=== PATIENT | female | born 1940 | race Caucasian/White ===

== ENCOUNTER 2018-03-05 13:09 | Emergency (ER) | payer MEDICARE, OTHER ==
[2018-03-05 13:14] VITALS: BP 157/73; PULSE 80; TEMP 98.8
--- NOTE | 2018-03-05 13:35 | ED ---
General Adult HPI - General Chief complaint: Shortness of Breath Stated complaint: chest pain Source: patient Mode of arrival: wheelchair Limitations: no limitations - History of Present Illness Initial comments: Dictation was produced using [employer] dictation software. please excuse any grammatical, word or spelling errors. Chief Complaint: 77-year-old female with past medical history diabetes , GERD, dyslipidemia, hypertension presents with left shoulder pain. History of Present Illness: This 77-year-old female presents with left upper extremity pain. Patient states that yesterday they were carrying a lot of groceries. Patient is not used to exert herself that much. She was concerned that she was having a heart attack propping her to come to the emergency department. Patient does not have a history of coronary artery disease. Patient denies any chest pressure. She does report feeling mildly short of breath however she feels that she was anxious. The ROS documented in this emergency department record has been reviewed and confirmed by me. Those systems with pertinent positive or negative responses have been documented in the HPI. All other systems are other negative and/or noncontributory. - Related Data Home Medications Medication Instructions Recorded Confirmed Aspirin [Adult Low Dose Aspirin EC] 81 mg PO DAILY 03/05/18 03/05/18 Omeprazole 40 mg PO DAILY 03/05/18 03/05/18 Quinapril HCl 40 mg PO HS 03/05/18 03/05/18 Simvastatin [Zocor] 20 mg PO HS 03/05/18 03/05/18 glyBURIDE [Diabeta] 5 mg PO DAILY 03/05/18 03/05/18 traMADol HCL [Ultram] 50 mg PO DAILY PRN 03/05/18 03/05/18 Allergies Allergy/AdvReac Type Severity Reaction Status Date / Time No Known Allergies Allergy Verified 03/05/18 14:11 Review of Systems ROS Statement: Those systems with pertinent positive or pertinent negative responses have been documented in the HPI. ROS Other: All systems not noted in ROS Statement are negative. Past Medical History Past Medical History: Diabetes Mellitus, GERD/Reflux, Hyperlipidemia, Hypertension History of Any Multi-Drug Resistant Organisms: None Reported Past Surgical History: Hysterectomy Additional Past Surgical History / Comment(s): veins strip Past Psychological History: No Psychological Hx Reported Smoking Status: Never smoker Past Alcohol Use History: None Reported Past Drug Use History: None Reported General Exam - General Exam Comments Initial Comments: PHYSICAL EXAM: General Impression: Alert and oriented x3, not in acute distress HEENT: Normocephalic atraumatic, extra-ocular movements intact, pupils equal and reactive to light bilaterally, mucous membranes moist. Cardiovascular: Heart regular rate and rhythm, S1&S2 audible, no murmurs, rubs or gallops Chest: Lungs clear to auscultation bilaterally, no rhonchi, no wheeze, no rales Abdomen: Bowel sounds present, abdomen soft, non-tender, non-distended, no organomegaly Musculoskeletal: Pulses present and equal in all extremities, no peripheral edema, tenderness to palpation of the left shoulder, pain reproduced with abduction of the left upper extremity Motor: Power 5/5 bilaterally, no focal deficits noted Neurological: CN II-XII grossly intact, no focal motor or sensory deficits noted Skin: Intact with no visualized rashes Psych: Normal affect and mood Limitations: no limitations Course Vital Signs 03/05/18 13:10 Temperature 98.8 F Pulse Rate 80 Respiratory 18 Rate Blood Pressure 157/73 O2 Sat by Pulse 97 Oximetry Medical Decision Making - Medical Decision Making ED course: 77-year-old female presents with left upper extremity pain. Clinical presentation consistent with ACS. Vital signs upon arrival are within acceptable limits. Physical examination shows well-appearing female in no acute distress. Pain is reproduced on physical examination. Patient's symptoms are atypical for any cardiopulmonary disease however given patient's age and comorbidities she has risk factors. Laboratory evaluation obtained. CBC unremarkable coag panel unremarkable. Metabolic panel is unremarkable. Cardiac enzymes are negative. Two-view chest x-ray shows no acute processes. Discussed with patient that is her recommendation to obtain serial troponins to confidently rule out acute coronary disease. States she feels fine and that she would rather leave then wait for the second troponin. I believe this is reasonable given that patient's clinical presentation is obviously musculoskeletal shoulder strain. Patient lives locally and states that she will be able to come to the emergency Department immediately should she develop any symptoms. Patient is understandable and agreeable to disposition. EKG interpretation: Ventricular rate 76. Normal sinus rhythm. No GA prolongation, no QTC prolongation, no ST or T-wave changes noted. Overall, this EKG is unremarkable - Lab Data Result diagrams: 03/05/18 13:35 03/05/18 13:35 Lab Results 0703/05/18 03/05/18 Range/Units 13:35 13:35 13:35 WBC 5.9 (3.8-10.6) k/uL RBC 4.22 (3.80-5.40) m/uL Hgb 11.5 (11.4-16.0) gm/dL Hct 36.8 (34.0-46.0) % MCV 87.2 (80.0-100.0) fL MCH 27.3 (25.0-35.0) pg MCHC 31.4 (31.0-37.0) g/dL RDW 15.5 (11.5-15.5) % Plt Count 315 (150-450) k/uL Neutrophils % 70 % Lymphocytes % 16 % Monocytes % 10 % Eosinophils % 2 % Basophils % 1 % Neutrophils # 4.2 (1.3-7.7) k/uL Lymphocytes # 0.9 L (1.0-4.8) k/uL Monocytes # 0.6 (0-1.0) k/uL Eosinophils # 0.1 (0-0.7) k/uL Basophils # 0.0 (0-0.2) k/uL Hypochromasia Slight PT (9.0-12.0) sec INR (<1.2) APTT (22.0-30.0) sec Sodium 140 (137-145) mmol/L Potassium 4.6 (3.5-5.1) mmol/L Chloride 104 (98-107) mmol/L Carbon Dioxide 26 (22-30) mmol/L Anion Gap 10 mmol/L BUN 13 (7-17) mg/dL Creatinine 0.75 (0.52-1.04) mg/dL Est GFR (CKD-EPI)AfAm 88 (>60 ml/min/1.73 sqM) Est GFR (CKD-EPI)NonAf 76 (>60 ml/min/1.73 sqM) Glucose 132 H (74-99) mg/dL Calcium 9.2 (8.4-10.2) mg/dL Magnesium 2.1 (1.6-2.3) mg/dL Total Bilirubin 0.3 (0.2-1.3) mg/dL AST 16 (14-36) U/L ALT 19 (9-52) U/L Alkaline Phosphatase 67 (38-126) U/L Total Creatine Kinase 76 (30-135) U/L CK-MB (CK-2) 1.3 (0.0-2.4) ng/mL CK-MB (CK-2) Rel Index 1.7 Troponin I <0.012 (0.000-0.034) ng/mL Total Protein 7.0 (6.3-8.2) g/dL Albumin 4.1 (3.5-5.0) g/dL 03/05/18 Range/Units 13:35 WBC (3.8-10.6) k/uL RBC (3.80-5.40) m/uL Hgb (11.4-16.0) gm/dL Hct (34.0-46.0) % MCV (80.0-100.0) fL MCH (25.0-35.0) pg MCHC (31.0-37.0) g/dL RDW (11.5-15.5) % Plt Count (150-450) k/uL Neutrophils % % Lymphocytes % % Monocytes % % Eosinophils % % Basophils % % Neutrophils # (1.3-7.7) k/uL Lymphocytes # (1.0-4.8) k/uL Monocytes # (0-1.0) k/uL Eosinophils # (0-0.7) k/uL Basophils # (0-0.2) k/uL Hypochromasia PT 9.7 (9.0-12.0) sec INR 1.0 (<1.2) APTT 24.0 (22.0-30.0) sec Sodium (137-145) mmol/L Potassium (3.5-5.1) mmol/L Chloride (98-107) mmol/L Carbon Dioxide (22-30) mmol/L Anion Gap mmol/L BUN (7-17) mg/dL Creatinine (0.52-1.04) mg/dL Est GFR (CKD-EPI)AfAm (>60 ml/min/1.73 sqM) Est GFR (CKD-EPI)NonAf (>60 ml/min/1.73 sqM) Glucose (74-99) mg/dL Calcium (8.4-10.2) mg/dL Magnesium (1.6-2.3) mg/dL Total Bilirubin (0.2-1.3) mg/dL AST (14-36) U/L ALT (9-52) U/L Alkaline Phosphatase (38-126) U/L Total Creatine Kinase (30-135) U/L CK-MB (CK-2) (0.0-2.4) ng/mL CK-MB (CK-2) Rel Index Troponin I (0.000-0.034) ng/mL Total Protein (6.3-8.2) g/dL Albumin (3.5-5.0) g/dL Disposition Clinical Impression: Shoulder strain Disposition: HOME SELF-CARE Condition: Good Instructions: Muscle Strain (ED) Is patient prescribed a controlled substance at d/c from ED?: No Referrals: None,Stated [Primary Care Provider] - 1-2 days Time of Disposition: 14:49
--- NOTE | 2018-03-05 13:51 | XR ---
EXAMINATION TYPE: XR chest 2V DATE OF EXAM: 03/05/2018 HISTORY: difficulty breathing. REFERENCE: NONE. FINDINGS: There is a partial eventration of the right hemidiaphragm. The lungs are clear. Pleural spa ce are clear. The heart is not enlarged. IMPRESSION: NO ACUTE CARDIOTHORACIC ABNORMALITY.
[2018-03-05 14:04] LABS: Albumin 4.1 g/dL (3.5-5.0); Calcium 9.2 mg/dL (8.4-10.2); Magnesium 2.1 mg/dL (1.6-2.3); Potassium 4.6 mmol/L (3.5-5.1); Total Bilirubin 0.3 mg/dL (0.2-1.3)
[2018-03-05 14:05] LABS: Basophils % (A) 1 %; Eosinophils # (A) 0.1 k/uL (0-0.7); Eosinophils % (A) 2 %; HCT 36.8 % (34.0-46.0); HGB 11.5 gm/dL (11.4-16.0); Hypochromasia Slight; Lymphocytes # (A) 0.9 k/uL (1.0-4.8); Lymphocytes % (A) 16 %; MCH 27.3 pg (25.0-35.0); MCHC 31.4 g/dL (31.0-37.0); MCV 87.2 fL (80.0-100.0); Mean Platelet Volume 6.4; Monocytes # (A) 0.6 k/uL (0-1.0); Monocytes % (A) 10 %; Neutrophils # (A) 4.2 k/uL (1.3-7.7); Neutrophils % (A) 70 %; Platelet Count 315 k/uL (150-450); Prothrombin Time 9.7 sec (9.0-12.0); RBC 4.22 m/uL (3.80-5.40); RDW 15.5 % (11.5-15.5); WBC 5.9 k/uL (3.8-10.6)
[2018-03-05 14:20] LABS: Creatine Kinase 76 U/L (30-135)
[2018-03-05 14:31] LABS: Creatine Kinase MB 1.3 ng/mL (0.0-2.4); Troponin I <0.012 ng/mL (0.000-0.034)
[2018-03-05 15:20] VITALS: RESP 16
== END 2018-03-05 15:17 | disposition home or self-care (01) ==
LOC: EC 13:09
DX: S46.912A Strain of unspecified muscle, fascia and tendon at shoulder and upper arm level, left arm, initial encounter (principal); E11.9 Type 2 diabetes mellitus without complications; K21.9 Gastro-esophageal reflux disease without esophagitis; E78.5 Hyperlipidemia, unspecified; I10 Essential (primary) hypertension; Z79.82 Long term (current) use of aspirin; Z79.84 Long term (current) use of oral hypoglycemic drugs; Z79.899 Other long term (current) drug therapy; X50.0XXA Overexertion from strenuous movement or load, initial encounter
CPT/HCPCS: 36415; 71046; 80053; 82550; 82553; 83735; 84484; 85025; 85610; 85730; 93005; 99285

== ENCOUNTER 2018-04-12 14:33 | Emergency (ER) | payer MEDICARE, OTHER ==
[2018-04-12 14:41] VITALS: BP 115/75; PULSE 92; RESP 18; TEMP 98.1
[2018-04-12] MEDS ORDERED: IBUPROFEN 600 MG TAB PO STA (14:52)
--- NOTE | 2018-04-12 15:18 | ED ---
Back Pain HPI - General Source: patient, RN notes reviewed Limitations: no limitations <Carrie Boogie - Last Filed: 04/12/18 16:59> <Rafita Escalante - Last Filed: 04/12/18 17:11> - General Chief Complaint: Back Pain/Injury Stated Complaint: back & leg pain Time Seen by Provider: 04/12/18 14:42 - History of Present Illness Initial Comments: This is a 78-year-old female of hypertension, hyperlipidemia and diabetes who presents today for chief complain of low back pain x5-6 days. Patient states that she noticed increasing low back pain for the past 5-6 days, she has recently returned from [place] and has been walking more than usual which she thinks this contributed to the pain. Patient describes the pain as a 9 out of 10 continuous aching pain that increases with walking and radiates down the right leg occasionally. Patient denies any fall or trauma to that, previous back surgery, history of cancer, fever, chills, night sweats, IV drug use, rashes, urgency, frequency, just area or hematuria, flank pain, numbness, tingling, paresthesias or loss of sensation lower extremities, lower extremity muscle weakness, ataxia. Patient has tried taking tramadol for which appears to prescribed from her physician in [place] for the pain. Her last dose at 9 PM last night she states that this barely helped. Patient has been applying Aspercreme to her lower back. She states that this does not help. Patient presents today to see if there is something we can do about the pain. Remainder of ROS negative. Upon arrival patient's vital signs stable, blood pressure 115/75, afebrile. (Carrie Boogie) - Related Data Home Medications Medication Instructions Recorded Confirmed Aspirin [Adult Low Dose Aspirin EC] 81 mg PO DAILY 03/05/18 03/05/18 Omeprazole 40 mg PO DAILY 03/05/18 03/05/18 Quinapril HCl 40 mg PO HS 03/05/18 03/05/18 Simvastatin [Zocor] 20 mg PO HS 03/05/18 03/05/18 glyBURIDE [Diabeta] 5 mg PO DAILY 03/05/18 03/05/18 traMADol HCL [Ultram] 50 mg PO DAILY PRN 03/05/18 03/05/18 Previous Rx's Medication Instructions Recorded Ibuprofen [Motrin] 600 mg PO Q8HR PRN 7 Days #21 tab 04/12/18 Allergies Allergy/AdvReac Type Severity Reaction Status Date / Time No Known Allergies Allergy Verified 04/12/18 14:41 Review of Systems ROS Other: All systems not noted in ROS Statement are negative. Constitutional: Denies: fever, chills, weakness, night sweats Eyes: Denies: vision change ENT: Denies: hearing loss Respiratory: Denies: cough, dyspnea, wheezes, hemoptysis, stridor Cardiovascular: Denies: chest pain, palpitations, edema, syncope Gastrointestinal: Denies: abdominal pain, nausea, vomiting, diarrhea, constipation Genitourinary: Denies: urgency, dysuria, frequency, hematuria Musculoskeletal: Reports: back pain, myalgia (right sided low back pain). Denies: joint swelling, arthralgia Skin: Denies: rash, lesions Neurological: Denies: headache, weakness, numbness, paresthesias, confusion, abnormal gait, vertigo <Carrie Boogie - Last Filed: 04/12/18 16:59> ROS Other: All systems not noted in ROS Statement are negative. <Rafita Escalante - Last Filed: 04/12/18 17:11> ROS Statement: Those systems with pertinent positive or pertinent negative responses have been documented in the HPI. Past Medical History Past Medical History: Diabetes Mellitus, GERD/Reflux, Hyperlipidemia, Hypertension History of Any Multi-Drug Resistant Organisms: None Reported Past Surgical History: Hysterectomy Additional Past Surgical History / Comment(s): veins strip Past Psychological History: No Psychological Hx Reported Smoking Status: Never smoker Past Alcohol Use History: None Reported Past Drug Use History: None Reported <Carrie Boogie - Last Filed: 04/12/18 16:59> General Exam Limitations: no limitations General appearance: alert, in no apparent distress Head exam: Present: atraumatic, normocephalic, normal inspection Eye exam: Present: normal appearance, PERRL, EOMI. Absent: nystagmus Pupils: Present: normal accommodation ENT exam: Present: mucous membranes moist Neck exam: Present: normal inspection, full ROM. Absent: tenderness Respiratory exam: Present: normal lung sounds bilaterally. Absent: wheezes, rales, rhonchi, stridor Cardiovascular Exam: Present: regular rate, normal rhythm, normal heart sounds. Absent: rubs, gallop, clicks, JVD, S3, S4 Left Hip exam: Present: normal inspection, full ROM Upper Leg exam: Present: normal inspection, full ROM Knee exam: Present: normal inspection, full ROM Lower Leg exam: Present: normal inspection, full ROM Ankle exam: Present: normal inspection, full ROM Foot/Toe exam: Present: normal inspection, full ROM Neurovascular tendon exam: Present: no vascular compromise. Absent: motor deficit, sensory deficit Gait: observed and normal Right Hip exam: Present: normal inspection, full ROM. Absent: tenderness Upper Leg exam: Present: normal inspection, full ROM. Absent: tenderness Knee exam: Present: normal inspection, full ROM. Absent: tenderness Lower Leg exam: Present: normal inspection, full ROM. Absent: tenderness Ankle exam: Present: normal inspection, full ROM. Absent: tenderness Foot/Toe exam: Present: normal inspection, full ROM. Absent: tenderness Neurovascular tendon exam: Present: no vascular compromise. Absent: motor deficit, sensory deficit, extremity cold to touch, pallor, foot drop Gait: observed and normal Back exam: Present: normal inspection, full ROM, tenderness (midline and right sided paravertebral), paraspinal tenderness (right sided), vertebral tenderness. Absent: CVA tenderness (R), CVA tenderness (L), muscle spasm, rash noted Expanded Back exam: Absent: saddle anesthesia Back exam: Positive Straight Leg Raise: Right, Negative Straight Leg Raising: Left Neurological exam: Present: alert, oriented X3, CN II-XII intact, normal gait, reflexes normal. Absent: motor sensory deficit Psychiatric exam: Present: normal affect, normal mood Skin exam: Present: warm, dry, intact. Absent: rash <Carrie Boogie L - Last Filed: 04/12/18 16:59> Course <Carrie Boogie - Last Filed: 04/12/18 16:59> <Rafita Escalante - Last Filed: 04/12/18 17:11> Vital Signs 04/12/18 14:36 Temperature 98.1 F Pulse Rate 92 Respiratory 18 Rate Blood Pressure 115/75 O2 Sat by Pulse 95 Oximetry - Reevaluation(s) Reevaluation #1: 04/12/18 17:10 PA supervision: I personally do a [id number] examination the patient and did discuss findings with her significant other. Patient does have tenderness palpation of the SI joints and lumbar spine.abdomen soft nontender no pulsatile masses. Good peripheral pulses bilaterally with respect to the femoral and posterior tibial. She will follow-up with Dr. Ck Coy at her request. I do agree with the assessment, plan. Documentation was otherwise specified. ( Rafita Escalante) Medical Decision Making <Carrie Boogie - Last Filed: 04/12/18 16:59> <Rafita Escalante - Last Filed: 04/12/18 17:11> - Medical Decision Making XR lumbar spine obtained X-ray lumbar spine reveals osteopenia without vertebral compression or collapse, hypertrophic facet arthropathy with preserved alignment, mild to moderate multilevel degenerative disc disease. No acute fracture. Incidentally upon review of lumbar spine x-ray by myself and Dr. Escalante we found calcification of the abdominal aorta. Pt was evaluated by Dr. Escalante in person. Patient has no pulsatile masses of the abdomen, lower extreme pulses are equal. Patient denies any sharp pain and states that the pain in her lower back started gradually and not suddenly. Vital signs stable. At this time we feel patient is stable for discharge with low back strain, with follow-up with primary care provider for monitoring of abdominal aortic calcification. Patient agrees with plan, verbalizes understanding. Denies questions at this time. Patient is instructed to rest, apply heat or ice the lumbar spine, and take ibuprofen as needed for pain management. Patient agreed plan. Patient discharged in stable condition. (Carrie Boogie) Disposition Is patient prescribed a controlled substance at d/c from ED?: No Time of Disposition: 16:00 <Carrie Boogie - Last Filed: 04/12/18 16:59> <Rafita Escalante - Last Filed: 04/12/18 17:11> Clinical Impression: Low back pain, Low back strain Disposition: HOME SELF-CARE Condition: Good Instructions: Low Back Strain (ED), Acute Low Back Pain (ED) Additional Instructions: Please use medication as discussed. Please follow-up with family doctor in the next 2 days as discussed, for calcified abdominal aorta. Please return to emergency room if the symptoms increase or worsen or for any other concerns. Prescriptions: Ibuprofen [Motrin] 600 mg PO Q8HR PRN 7 Days #21 tab PRN Reason: Pain Referrals: None,Stated [Primary Care Provider] - 1-2 days
--- NOTE | 2018-04-12 15:39 | XR ---
EXAMINATION TYPE: XR lumbar spine 2 or 3V DATE OF EXAM: 04/12/2018 COMPARISON: NONE HISTORY: 78-year-old female with pain TECHNIQUE: 3 views FINDINGS: Diffuse osteopenia. 5 lumbar type vertebral bodies. Hypertrophic facet arthropathy mid to lower lumba r spine. Vertebral body heights are preserved and alignment is maintained. Mild multilevel degenerati ve disc disease with variable disc interspace narrowing and endplate spondylosis. IMPRESSION: 1. Osteopenia without vertebral compression collapse. 2. Hypertrophic facet arthropathy with preserved alignment. 3. Mild to moderate multilevel degenerative disc disease.
== END 2018-04-12 16:18 | disposition home or self-care (01) ==
LOC: EC 14:33
DX: S39.012A Strain of muscle, fascia and tendon of lower back, initial encounter (principal); M85.88 Other specified disorders of bone density and structure, other site; M51.36 Other intervertebral disc degeneration, lumbar region; R93.8 Abnormal findings on diagnostic imaging of other specified body structures; E78.5 Hyperlipidemia, unspecified; I10 Essential (primary) hypertension; E11.9 Type 2 diabetes mellitus without complications; K21.9 Gastro-esophageal reflux disease without esophagitis; Z79.82 Long term (current) use of aspirin; Z79.84 Long term (current) use of oral hypoglycemic drugs; Z79.899 Other long term (current) drug therapy; X58.XXXA Exposure to other specified factors, initial encounter; Y93.01 Activity, walking, marching and hiking
CPT/HCPCS: 72100; 99283

== ENCOUNTER 2019-03-23 16:27 | Emergency (ER) | payer MEDICARE, OTHER ==
[2019-03-23 16:42] VITALS: BP 140/72; PULSE 75; RESP 18; TEMP 98.7
--- NOTE | 2019-03-23 17:40 | XR ---
EXAMINATION TYPE: XR forearm RT DATE OF EXAM: 03/23/2019 COMPARISON: NONE HISTORY: Arm pain TECHNIQUE: 2 views FINDINGS: Elbow joint is intact. Radius and ulna appear intact. There is some narrowing and spurring at the first carpometacarpal joint. I see no fracture. IMPRESSION: No fracture seen.
--- NOTE | 2019-03-23 17:41 | XR ---
EXAMINATION TYPE: XR humerus RT DATE OF EXAM: 03/23/2019 COMPARISON: NONE HISTORY: Fall. Pain. TECHNIQUE: 2 views FINDINGS: There is impacted humeral neck fracture. There is no dislocation. Scapula appears intact. IMPRESSION: Acute impacted humeral neck fracture.
--- NOTE | 2019-03-23 17:42 | XR ---
EXAMINATION TYPE: XR shoulder complete RT DATE OF EXAM: 03/23/2019 COMPARISON: NONE HISTORY: Fall. Pain. TECHNIQUE: 3 views FINDINGS: There is comminuted impacted humeral neck fracture. There is large fracture fragment of the greater tuberosity. There is no dislocation. The scapula appears intact. Clavicle appears intact. IMPRESSION: Acute impacted comminuted humeral neck fracture.
[2019-03-23] MEDS ORDERED: MORPHINE SULFATE 4 MG/ML SYRINGE IM STA (18:09)
--- NOTE | 2019-03-23 18:55 | ED ---
General Adult HPI - General Chief complaint: Fall Stated complaint: Fall Time Seen by Provider: 03/23/19 16:44 Source: patient, RN notes reviewed, old records reviewed Mode of arrival: wheelchair Limitations: no limitations - History of Present Illness Initial comments: 79-year-old female patient presents ED with chief complaint of right arm injury. Patient reports that she was walking, diuretic fell forward hitting her right shoulder and arm on a rug. Patient denies any trauma to head or neck. Patient chief complaint is right humerus pain. Patient also reports some minor pain in her shoulder and forearm region. Patient denies any chest pain or difficulty breathing. Denies any other complaints. Systemic: Pt denies fatigue, fever/chills, rash. Pt denies weakness, night sweats, weight loss. Neuro: Pt denies headache, visual disturbances, syncope or pre-syncope. HEENT: Pt denies ocular discharge or irritation, otalgia, rhinorrhea, pharyngi tis or notable lymphadenopathy. Cardiopulmonary: Pt denies chest pain, SOB, heart palpitations, dyspnea on exertion. Abdominal/GI: Pt denies abdominal pain, n/v/d. : Pt denies dysuria, burning w/ urination, frequency/urgency. Denies new onset urinary or bowel incontinence. MSK: Pt denies myalgia, loss of strength or function in extremities. Neuro: Pt denies new onset weakness, paresthesias. - Related Data Home Medications Medication Instructions Recorded Confirmed Aspirin [Adult Low Dose Aspirin EC] 81 mg PO DAILY 03/05/18 03/05/18 Omeprazole 40 mg PO DAILY 03/05/18 03/05/18 Quinapril HCl 40 mg PO HS 03/05/18 03/05/18 Simvastatin [Zocor] 20 mg PO HS 03/05/18 03/05/18 glyBURIDE [Diabeta] 5 mg PO DAILY 03/05/18 03/05/18 traMADol HCL [Ultram] 50 mg PO DAILY PRN 03/05/18 03/05/18 Previous Rx's Medication Instructions Recorded Ibuprofen [Motrin] 600 mg PO Q8HR PRN 7 Days #21 tab 04/12/18 Hydrocodone/Acetaminophen [[place] 1 each PO Q6HR PRN #12 tab 03/23/19 5-325] Allergies Allergy/AdvReac Type Severity Reaction Status Date / Time No Known Allergies Allergy Verified 03/23/19 16:42 Review of Systems ROS Statement: Those systems with pertinent positive or pertinent negative responses have been documented in the HPI. ROS Other: All systems not noted in ROS Statement are negative. Past Medical History Past Medical History: Diabetes Mellitus, GERD/Reflux, Hyperlipidemia, Hypertension History of Any Multi-Drug Resistant Organisms: None Reported Past Surgical History: Hysterectomy Additional Past Surgical History / Comment(s): veins strip Past Psychological History: No Psychological Hx Reported Smoking Status: Never smoker Past Alcohol Use History: None Reported Past Drug Use History: None Reported General Exam - General Exam Comments Initial Comments: Constitutional: NAD, AOX3, Pt has pleasant affect. HEENT: NC/AT, trachea midline, neck supple, no lymphadenopathy. Posterior pharynx non erythematous, without exudates. External ears appear normal, without discharge. Mucous membranes moist. Eyes PERRLA, EOM intact. There is no scleral icterus. No pallor noted. Cardiopulmonary: RRR, no murmurs, rubs or gallops, no JVD noted. Lungs CTAB in anterior and posterior carlos. No peripheral edema. Abdominal exam: Abdomen soft and non-distended. Abdomen non-tender to palpation in all 4 quadrants. Bowel sounds active in LLQ. No hepatosplenomegaly. No ecchymosis Neuro: CN II-XII grossly intact. No nuchal rigidity. No raccon eyes, no rincon sign, no hemotympanum. No cervical spinal tenderness. MSK: Right midshaft humerus moderately tender to palpation. Range of motion limited secondary to pain. No ecchymoses. No posterior calf tenderness bilaterally, homans sign negative bilaterally. Posterior tibialis and radial pulse +2 bilaterally. Sensation intact in upper and lower extremities. Full active ROM in upper and lower extremities, 5/5 stregnth. All dermatomes intact in right upper extremity. Flexion and extension intact forearm wrist. No wrist drop. Limitations: no limitations Course Vital Signs 03/23/19 16:40 Temperature 98.7 F Pulse Rate 75 Respiratory 18 Rate Blood Pressure 140/72 O2 Sat by Pulse 96 Oximetry Medical Decision Making - Medical Decision Making 29-year-old female patient comes to ED after fall, chief complaint right arm pain. Patient vital signs stable, afebrile. Physical exam displayed: Right midshaft humerus moderately tender to palpation. Range of motion limited secondary to pain. No ecchymoses. No posterior calf tenderness bilaterally, homans sign negative bilaterally. Posterior tibialis and radial pulse +2 bilaterally. Sensation intact in upper and lower extremities. Full active ROM in upper and lower extremities, 5/5 stregnth. All dermatomes intact in right upper extremity. Flexion and extension intact forearm wrist. No wrist drop. Plain film of forearm did not display acute process. Plain film of right shoulder and humerus display acute impacted femoral neck fracture. Patient placed in a shoulder sling. Patient discharged with close outpatient follow-up with orthopedic surgeon. Precautions discussed. Case discussed with Dr. South. Disposition Clinical Impression: Humerus fracture Disposition: HOME SELF-CARE Condition: Stable Instructions (If sedation given, give patient instructions): Proximal Humerus Fracture (ED) Additional Instructions: Patient to adhere to previously discussed treatment plan and will take medication(s) as directed. Patient to follow up with PCP in 1-2 days. Patient to return to ED if symptoms do not improve. Follow-up with primary care provider and orthopedic consult tomorrow. Use pain medication only as needed. Wear arm and right shoulder sling until orthopedic follow up. Prescriptions: Hydrocodone/Acetaminophen [[place] 5-325] 1 each PO Q6HR PRN #12 tab PRN Reason: Pain Is patient prescribed a controlled substance at d/c from ED?: Yes When asked, does pt state using other controlled substances?: No If prescribed controlled substance>3 days was MAPS reviewed?: Prescribed <3 Days If opioid is for acute pain is fill amount 7 days or less?: Yes If Rx opioid, was Start Talking consent form obtained?: Yes Referrals: Alvaro Najera MD [Primary Care Provider] - 1-2 days Kush William DO [Medical Doctor] - 1-2 days
== END 2019-03-23 19:54 | disposition home or self-care (01) ==
LOC: EC 16:27
DX: S42.291A Other displaced fracture of upper end of right humerus, initial encounter for closed fracture (principal); E11.9 Type 2 diabetes mellitus without complications; K21.9 Gastro-esophageal reflux disease without esophagitis; E78.5 Hyperlipidemia, unspecified; I10 Essential (primary) hypertension; Z79.82 Long term (current) use of aspirin; Z79.84 Long term (current) use of oral hypoglycemic drugs; Z79.899 Other long term (current) drug therapy; W01.198A Fall on same level from slipping, tripping and stumbling with subsequent striking against other object, initial encounter; Y93.01 Activity, walking, marching and hiking; Y92.009 Unspecified place in unspecified non-institutional (private) residence as the place of occurrence of the external cause
CPT/HCPCS: 73030; 73060; 73090; 99284; 96372; J2270

== ENCOUNTER → 2019-03-28 | Outpatient (CLI) | payer MEDICARE ==
--- NOTE | 2019-03-29 08:13 | CT ---
EXAMINATION TYPE: CT shoulder RT wo con DATE OF EXAM: 03/28/2019 COMPARISON: X-ray shoulder dated 03/23/2018 HISTORY: right shoulder fx following fall CT DLP: 295.8 mGycm Automated exposure control for dose reduction was used. FINDINGS: Redemonstration of impacted humeral head fracture with comminuted components seen extending through t he greater and lesser tuberosities. There is overlap of the proximal humerus shaft with the humeral h ead by approximately 0.9 cm. Platelike fracture fragment is seen posterior to the humeral head measur ing 2.9 cm in AP dimension. There is a large joint effusion. No evidence of dislocation. Degenerative changes are seen at the acromioclavicular joint, but the acromioclavicular joint appears intact. Glenoid rim and coracoid appear intact. Small linear calcification is seen at the anterior scapula on axial image 19 and coronal image 28 whi ch may be related to degenerative calcification versus small avulsion fragment. Edematous changes are seen within the musculature surrounding the fracture site. Evaluation of the tendons and ligaments is somewhat limited due to the edema surrounding the fracture site, but the biceps tendon appears grossly intact and within the bicipital groove there may be thic kening of the biceps tendon from partial tears or strain. Ribs appear grossly intact. A few linear radiopaque densities are seen in the inferior and lateral right upper lobe suggestive of calcification. IMPRESSION: IMPACTED COMMINUTED HUMERAL HEAD FRACTURE WITHOUT DISLOCATION. LARGE JOINT EFFUSION. PARTIAL TEARS OR STRAINS OF THE BICEPS TENDON, BUT GROSSLY INTACT.
== END | disposition home or self-care (01) ==
LOC: RADCTMAIN 14:17
PROVIDERS: ATTEND Orthopaedic Surgery
DX: S42.251A Displaced fracture of greater tuberosity of right humerus, initial encounter for closed fracture (principal)

== ENCOUNTER 2019-10-08 12:07 | Observation (INO) | payer MEDICARE ==
--- NOTE | 2019-10-08 12:20 | ED ---
General Adult HPI - General Chief complaint: Shortness of Breath Stated complaint: SERA Time Seen by Provider: 10/08/19 12:13 Source: patient, RN notes reviewed Mode of arrival: ambulatory Limitations: no limitations - History of Present Illness Initial comments: Patient is a pleasant 79-year-old female presenting to the emergency department with difficulty breathing. Onset of symptoms was around 4 days ago. Patient did have cough for a couple of days however that has resolved. Cough did have some yellow sputum. Patient has had some dyspnea that has been persistent. Dyspnea is mild at rest but moderate with exertion. Patient also has some mild chest pressure that is somewhat new. No leg pain or leg swelling. No fevers. No history of similar symptoms previously. - Related Data Home Medications Medication Instructions Recorded Confirmed Aspirin [Adult Low Dose Aspirin EC] 81 mg PO DAILY 03/05/18 10/08/19 Quinapril HCl 40 mg PO DAILY 03/05/18 10/08/19 Simvastatin [Zocor] 20 mg PO HS 03/05/18 10/08/19 Artificial Tears-Hypromellose 1 drop BOTH EYES DAILY PRN 10/08/19 10/08/19 [Artificial Tear Drops] Famotidine [Pepcid] 20 mg PO DAILY PRN 10/08/19 10/08/19 Glimepiride [Amaryl] 1 mg PO DAILY 10/08/19 10/08/19 Allergies Allergy/AdvReac Type Severity Reaction Status Date / Time No Known Allergies Allergy Verified 10/08/19 14:11 Review of Systems ROS Statement: Those systems with pertinent positive or pertinent negative responses have been documented in the HPI. ROS Other: All systems not noted in ROS Statement are negative. Constitutional: Denies: fever Eyes: Denies: eye pain ENT: Denies: ear pain Respiratory: Reports: as per HPI Cardiovascular: Reports: as per HPI Gastrointestinal: Denies: abdominal pain Musculoskeletal: Denies: back pain Skin: Denies: rash Neurological: Denies: weakness Past Medical History Past Medical History: Diabetes Mellitus, GERD/Reflux, Hyperlipidemia, Hypertension History of Any Multi-Drug Resistant Organisms: None Reported Past Surgical History: Hysterectomy Additional Past Surgical History / Comment(s): veins strip Past Psychological History: No Psychological Hx Reported Smoking Status: Never smoker Past Alcohol Use History: None Reported Past Drug Use History: None Reported General Exam Limitations: no limitations General appearance: alert, in no apparent distress Head exam: Present: normocephalic Eye exam: Present: normal appearance, PERRL ENT exam: Present: normal oropharynx Neck exam: Present: normal inspection Respiratory exam: Present: normal lung sounds bilaterally. Absent: chest wall tenderness Cardiovascular Exam: Present: regular rate, normal rhythm Expanded Peripheral pulses: 2+: Radial (R), Radial (L), Dorsalis Pedis (R), Dorsalis Pedis (L) GI/Abdominal exam: Present: soft. Absent: distended, tenderness Extremities exam: Present: normal inspection. Absent: pedal edema, calf tenderness Neurological exam: Present: alert Psychiatric exam: Present: normal affect, normal mood Skin exam: Present: normal color Course Vital Signs 10/08/19 12:07 Temperature 98.1 F Pulse Rate 85 Respiratory 20 Rate Blood Pressure 132/63 O2 Sat by Pulse 95 Oximetry EKG Findings - EKG Comments: EKG Findings:: Normal sinus rhythm 78. ME 152. QRS 76. QT 384. QTC 437. Normal axis. Normal QRS. No acute ST change. Medical Decision Making - Medical Decision Making Patient reevaluated and resting comfortable releasing in bed. Patient updated on results and plan. Case was discussed in detail with Dr. Lam, who will admit covering for Dr. Najera. Patient will be held for cardiac further evaluation. Patient is informed she will need to follow-up with pulmonary in the future. - Lab Data Result diagrams: 10/08/19 12:39 10/08/19 12:39 Lab Results 10/08/19 10/08/19 10/08/19 Range/Units 12:39 12:39 12:39 WBC 4.7 (3.8-10.6) k/uL RBC 4.29 (3.80-5.40) m/uL Hgb 12.5 (11.4-16.0) gm/dL Hct 38.6 (34.0-46.0) % MCV 90.1 (80.0-100.0) fL MCH 29.2 (25.0-35.0) pg MCHC 32.5 (31.0-37.0) g/dL RDW 14.9 (11.5-15.5) % Plt Count 188 (150-450) k/uL Neutrophils % (Manual) 71 % Band Neutrophils % 1 % Lymphocytes % (Manual) 13 % Monocytes % (Manual) 15 % Neutrophils # (Manual) 3.30 (1.3-7.7) k/uL Lymphocytes # (Manual) 0.61 L (1.0-4.8) k/uL Monocytes # (Manual) 0.71 (0-1.0) k/uL Nucleated RBCs 0 (0-0) /100 WBC Manual Slide Review Performed RBC Morphology Normal PT 9.5 (9.0-12.0) sec INR 0.9 (<1.2) APTT 26.1 (22.0-30.0) sec D-Dimer 0.90 H (<0.60) mg/L FEU Sodium 135 L (137-145) mmol/L Potassium 4.9 (3.5-5.1) mmol/L Chloride 100 (98-107) mmol/L Carbon Dioxide 26 (22-30) mmol/L Anion Gap 9 mmol/L BUN 28 H (7-17) mg/dL Creatinine 0.96 (0.52-1.04) mg/dL Est GFR (CKD-EPI)AfAm 64 (>60 ml/min/1.73 sqM) Est GFR (CKD-EPI)NonAf 56 (>60 ml/min/1.73 sqM) Glucose 116 H (74-99) mg/dL Plasma Lactic Acid Poli (0.7-2.0) mmol/L Calcium 9.0 (8.4-10.2) mg/dL Total Bilirubin 0.4 (0.2-1.3) mg/dL AST 40 H (14-36) U/L ALT 21 (4-34) U/L Alkaline Phosphatase 58 (38-126) U/L Creatine Kinase 102 (30-135) U/L Troponin I (0.000-0.034) ng/mL NT-Pro-B Natriuret Pep pg/mL Total Protein 7.6 (6.3-8.2) g/dL Albumin 4.2 (3.5-5.0) g/dL 10/08/19 10/08/19 10/08/19 Range/Units 12:39 12:39 13:04 WBC (3.8-10.6) k/uL RBC (3.80-5.40) m/uL Hgb (11.4-16.0) gm/dL Hct (34.0-46.0) % MCV (80.0-100.0) fL MCH (25.0-35.0) pg MCHC (31.0-37.0) g/dL RDW (11.5-15.5) % Plt Count (150-450) k/uL Neutrophils % (Manual) % Band Neutrophils % % Lymphocytes % (Manual) % Monocytes % (Manual) % Neutrophils # (Manual) (1.3-7.7) k/uL Lymphocytes # (Manual) (1.0-4.8) k/uL Monocytes # (Manual) (0-1.0) k/uL Nucleated RBCs (0-0) /100 WBC Manual Slide Review RBC Morphology PT (9.0-12.0) sec INR (<1.2) APTT (22.0-30.0) sec D-Dimer (<0.60) mg/L FEU Sodium (137-145) mmol/L Potassium (3.5-5.1) mmol/L Chloride (98-107) mmol/L Carbon Dioxide (22-30) mmol/L Anion Gap mmol/L BUN (7-17) mg/dL Creatinine (0.52-1.04) mg/dL Est GFR (CKD-EPI)AfAm (>60 ml/min/1.73 sqM) Est GFR (CKD-EPI)NonAf (>60 ml/min/1.73 sqM) Glucose (74-99) mg/dL Plasma Lactic Acid Poli 1.0 (0.7-2.0) mmol/L Calcium (8.4-10.2) mg/dL Total Bilirubin (0.2-1.3) mg/dL AST (14-36) U/L ALT (4-34) U/L Alkaline Phosphatase (38-126) U/L Creatine Kinase (30-135) U/L Troponin I <0.012 (0.000-0.034) ng/mL NT-Pro-B Natriuret Pep 47 pg/mL Total Protein (6.3-8.2) g/dL Albumin (3.5-5.0) g/dL - Radiology Data Radiology results: report reviewed (Computed tomography scan the chest negative for pulmonary embolism. Mild fibrosis.), image reviewed (Chest x-ray shows COPD.) Disposition Clinical Impression: Chest pain, Dyspnea Disposition: ADMITTED IP TO THIS HOSP Is patient prescribed a controlled substance at d/c from ED?: No Referrals: Alvaro Najera MD [Primary Care Provider] - 1-2 days Decision Time: 14:35
[2019-10-08 12:57] LABS: HCT 38.6 % (34.0-46.0); HGB 12.5 gm/dL (11.4-16.0); MCH 29.2 pg (25.0-35.0); MCHC 32.5 g/dL (31.0-37.0); MCV 90.1 fL (80.0-100.0); Mean Platelet Volume 7.3; Platelet Count 188 k/uL (150-450); RBC 4.29 m/uL (3.80-5.40); RDW 14.9 % (11.5-15.5); WBC 4.7 k/uL (3.8-10.6)
--- NOTE | 2019-10-08 13:03 | XR ---
EXAMINATION TYPE: XR chest 2V DATE OF EXAM: 10/08/2019 HISTORY: difficulty breathing. REFERENCE: Previous study dated 03/05/2018. FINDINGS: There is a partial eventration of the right hemidiaphragm. Heart size upper limits of normal. The lungs are clear. Pleural spaces are clear. I suspect underlyin g COPD. IMPRESSION: COPD.
[2019-10-08 13:07] LABS: Albumin 4.2 g/dL (3.5-5.0); Potassium 4.9 mmol/L (3.5-5.1); Total Bilirubin 0.4 mg/dL (0.2-1.3); Total Protein 7.6 g/dL (6.3-8.2)
[2019-10-08 13:14] LABS: INR 0.9 (<1.2); Partial Thromboplastin Time 26.1 sec (22.0-30.0); Prothrombin Time 9.5 sec (9.0-12.0)
[2019-10-08 13:24] LABS: D-Dimer 0.9 mg/L FEU (<0.60)
[2019-10-08 13:33] LABS: Band Neutrophils % 1 %; Lymphocytes # (M) 0.61 k/uL (1.0-4.8); Monocytes # (M) 0.71 k/uL (0-1.0); Neutrophils % (M) 71 %; Nucleated Red Blood Cells 0 /100 WBC (0-0); Total Cells Counted 100
--- NOTE | 2019-10-08 14:05 | CT ---
EXAMINATION TYPE: CT angio chest DATE OF EXAM: 10/08/2019 COMPARISON: None there are 3-D post processed images. HISTORY: PE protocol Chest pain. CT DLP: 330.4 mGycm Automated exposure control for dose reduction was used. CONTRAST: Performed without and with IV Contrast, patient injected with 100 ml mL of Isovue 370. Ascending aorta measures 3.5 cm. There is no evidence of aneurysm or dissection. There is no mediasti nal adenopathy. There are no hilar masses. Heart size is normal. There is normal contrast opacification of the pulmonary arteries. I see no filling defect. There is a berrant right subclavian artery which is posterior to the esophagus. There is no pleural effusion. There is mild coarsening of pulmonary interstitial markings. There is n o evidence of a pulmonary mass. There is no pericardial effusion. There is minor spurring in the thoracic spine. I see no bony destructive process. There is small hiat al hernia. IMPRESSION: No evidence of pulmonary embolism. Mild pulmonary fibrotic changes.
[2019-10-08] MEDS ORDERED: ASPIRIN 81 MG PO STA (14:37)
[2019-10-08] MEDS ORDERED: IPRATROPIUM-ALBUTEROL 3 ML NEB INHALATION STA (14:37)
[2019-10-08] MEDS ORDERED: NITROGLYCERIN SL TABS 0.4 MG TAB SUBLINGUAL PRN (14:37)
[2019-10-08] MEDS: NITROGLYCERIN OINT 1 INCH/GM PACKET TOPICAL SCH ×2 (17:04→23:07)
[2019-10-08 21:25] VITALS: RESP 18
[2019-10-09] MEDS: NITROGLYCERIN OINT 1 INCH/GM PACKET TOPICAL SCH (03:08)
[2019-10-09 06:01] LABS: Cholesterol 119 mg/dL (<200); HDL Cholesterol 43 mg/dL (40-60); LDL Cholesterol,Calculated 48 mg/dL (0-99); Triglycerides 138 mg/dL (<150)
[2019-10-09 08:02] LABS: Glucose,Whole Blood 108 mg/dL (75-99)
[2019-10-09] MEDS ORDERED: ARTIFICIAL TEARS-HYPROMELLOSE DROPS 15 ML BTL BOTH EYES PRN (09:00)
[2019-10-09] MEDS ORDERED: FAMOTIDINE 20 MG TAB PO PRN (09:00)
[2019-10-09] MEDS ORDERED: ASPIRIN 81 MG PO SCH ×2 (09:00)
[2019-10-09] MEDS ORDERED: ASPIRIN 325 MG TAB PO SCH (09:00)
[2019-10-09] MEDS ORDERED: GLIMEPIRIDE 1 MG TAB PO SCH (09:00)
[2019-10-09] MEDS ORDERED: LISINOPRIL 20 MG TAB PO SCH (09:00)
[2019-10-09] MEDS ORDERED: CHOLECALCIFEROL 1,000 UNIT TAB PO SCH (09:00)
[2019-10-09] MEDS ORDERED: BENZONATATE 100 MG CAP PO STA (09:49)
--- NOTE | 2019-10-09 09:50 | P.CRDCN ---
<Jaimie Purcell - Last Filed: 10/09/19 09:43> History of Present Illness History of present illness: HISTORY OF PRESENTING ILLNESS This is a pleasant 79-year-old female past medical history significant for diabetes mellitus, hypertension and dyslipidemia. She denies prior history of coronary artery disease and dose not follow in the office with a evening anchor. We have been asked to see in consultation for chest pain. She is seen and examined laying flat resting comfortably in bed. She states she has bee n coughing for the last 3 days. She is bringing up some yellow mostly clear sputum. She as some associated shortness of breath. She states when she starts coughing she gets dyspneic. No chest pain, dizziness, palpitations, nausea, vomiting or diaphoresis. DIAGNOSTICS EKG reveals sinus mechanism with nonspecific abnormalities 2. Chest xray negative for an acute cardiopulmonary process with evidence of underlying COPD. CTA of the chest is negative for PE with fibrotic changes. Laboratory reviewed, the enzymes negative 3, LDL 48, HDL 43, CBC unremarkable, d-dimer 0.9, sodium 135, potassium 4.9, creatinine 0.96 and NT proBNP 47. Current cardiac medications include aspirin 81 mg daily, quinapril 40 mg daily and simvastatin 20 mg at that time. REVIEW OF SYSTEMS At the time of my exam: CONSTITUTIONAL: Denies fever or chills. CARDIOVASCULAR: Denies chest pain, shortness of breath, orthopnea, PND or palpitations. RESPIRATORY: Denies cough. GASTROINTESTINAL: Denies abdominal pain, diarrhea, constipation, nausea or vomiting. MUSCULOSKELETAL: Denies myalgias. NEUROLOGIC: Denies numbness, tingling or weakness. ENDOCRINE: Denies fatigue, weight change, polydipsia or polyurina. GENITOURINARY: Denies burning, hematuria or urgency with micturation. HEMATOLOGIC: Denies history of anemia or bleeding. PHYSICAL EXAMINATION Blood pressure 113/73 heart rate 78 afebrile and maintaining oxygen saturation on room air. CONSTITUTIONAL: No apparent distress. HEENT: Head is normocephalic. Pupils are equal, round. Sclerae anicteric. Mucous membranes of the mouth are moist. No JVD. No carotid bruit. CHEST EXAMINATION: Lungs are clear to auscultation. No chest wall tenderness is noted on palpation or with deep breathing. HEART EXAMINATION: Regular rate and rhythm. S1, S2 heard. No murmurs, gallops or rub. ABDOMEN: Soft, nontender. Positive bowel sounds. EXTREMITIES: 2+ peripheral pulses, no lower extremity edema and no calf tenderness. NEUROLOGIC EXAMINATION: Patient is awake, alert and oriented x3. ASSESSMENT Shortness of breath and cough. Atypical for angina. An acute coronary event has been ruled out. Hypertension Dyslipidemia Diabetes mellitus PLAN An acute coronary event has been ruled out. 2-D echocardiogram and Doppler study has been obtained and will be reviewed. No further cardiac workup at this time. Ongoing medical evaluation of cough and underlying respiratory pathology. Thank you kindly for this consultation. Nurse Practitioner note has been reviewed, I agree with a documented findings and plan of care. Patient was seen and examined. Past Medical History Past Medical History: COPD, Diabetes Mellitus, GERD/Reflux, Hyperlipidemia, Hypertension, Osteoarthritis (OA) History of Any Multi-Drug Resistant Organisms: None Reported Past Surgical History: Hysterectomy Additional Past Surgical History / Comment(s): veins strip Past Anesthesia/Blood Transfusion Reactions: Motion Sickness Past Psychological History: No Psychological Hx Reported Smoking Status: Never smoker Past Alcohol Use History: None Reported Past Drug Use History: None Reported - Past Family History Mother Family Medical History: Cancer Additional Family Medical History / Comment(s): breast Father Family Medical History: Myocardial Infarction ([place]) Additional Family Medical History / Comment(s): fatal Sister(s) Family Medical History: Cancer Additional Family Medical History / Comment(s): breast cancer 2 sisters Medications and Allergies Home Medications Medication Instructions Recorded Confirmed Type Aspirin [Adult Low Dose Aspirin EC] 81 mg PO DAILY 03/05/18 10/08/19 History Quinapril HCl 40 mg PO DAILY 03/05/18 10/08/19 History Simvastatin [Zocor] 20 mg PO HS 03/05/18 10/08/19 History Artificial Tears-Hypromellose 1 drop BOTH EYES DAILY PRN 10/08/19 10/08/19 History [Artificial Tear Drops] Cholecalciferol (Vitamin D3) 2,000 unit PO DAILY 10/08/19 10/08/19 History [Vitamin D3] Famotidine [Pepcid] 20 mg PO DAILY PRN 10/08/19 10/08/19 History Glimepiride [Amaryl] 1 mg PO DAILY 10/08/19 10/08/19 History Allergies Allergy/AdvReac Type Severity Reaction Status Date / Time No Known Allergies Allergy Verified 10/08/19 14:11 Physical Exam Vitals: Vital Signs Temp Pulse Pulse Resp BP BP Pulse Ox 10/09/19 03:49 84 18 10/09/19 03:47 98.2 F 84 18 124/64 94 L 10/09/19 00:00 98.1 F 79 18 115/65 96 10/08/19 20:00 99.3 F 77 18 122/70 93 L 10/08/19 15:34 98.6 F 80 19 134/77 97 10/08/19 15:04 76 10/08/19 14:56 80 10/08/19 14:52 98.0 F 80 18 128/74 96 10/08/19 12:07 98.1 F 85 20 132/63 95 Intake and Output 10/08/19 10/09/19 10/09/19 22:59 06:59 14:59 Other: Voiding Method Toilet Toilet # Voids 1 Weight 65.771 kg 65.9 kg Results 10/08/19 12:39 10/08/19 12:39 Cardiac Enzymes 10/08/19 10/08/19 10/08/19 Range/Units 12:39 12:39 17:37 AST 40 H (14-36) U/L Troponin I <0.012 <0.012 (0.000-0.034) ng/mL 10/08/19 Range/Units 23:57 AST (14-36) U/L Troponin I <0.012 (0.000-0.034) ng/mL Coagulation 10/08/19 Range/Units 12:39 PT 9.5 (9.0-12.0) sec APTT 26.1 (22.0-30.0) sec Lipids 10/09/19 Range/Units 05:26 Triglycerides 138 (<150) mg/dL Cholesterol 119 (<200) mg/dL HDL Cholesterol 43 (40-60) mg/dL CBC 10/08/19 Range/Units 12:39 WBC 4.7 (3.8-10.6) k/uL RBC 4.29 (3.80-5.40) m/uL Hgb 12.5 (11.4-16.0) gm/dL Hct 38.6 (34.0-46.0) % Plt Count 188 (150-450) k/uL Comprehensive Metabolic Panel 10/08/19 Range/Units 12:39 Sodium 135 L (137-145) mmol/L Potassium 4.9 (3.5-5.1) mmol/L Chloride 100 (98-107) mmol/L Carbon Dioxide 26 (22-30) mmol/L BUN 28 H (7-17) mg/dL Creatinine 0.96 (0.52-1.04) mg/dL Glucose 116 H (74-99) mg/dL Calcium 9.0 (8.4-10.2) mg/dL AST 40 H (14-36) U/L ALT 21 (4-34) U/L Alkaline Phosphatase 58 (38-126) U/L Total Protein 7.6 (6.3-8.2) g/dL Albumin 4.2 (3.5-5.0) g/dL Current Medications Generic Name Dose Route Start Last Admin Trade Name Freq PRN Reason Stop Dose Admin Artificial Tears 1 drops 10/09/19 09:00 Artificial Tear Drops BOTH EYES DAILY PRN Dry Eye(s) Aspirin 325 mg 10/09/19 09:00 Aspirin PO DAILY [facility] Atorvastatin Calcium 10 mg 10/09/19 21:00 Lipitor PO HS [facility] Cholecalciferol 2,000 unit 10/09/19 09:00 Vitamin D3 (25 Mcg = 1000 Iu) PO DAILY [facility] Famotidine 20 mg 10/09/19 09:00 Pepcid PO DAILY PRN Heartburn Glimepiride 1 mg 10/09/19 09:00 Amaryl PO DAILY [facility] Lisinopril 40 mg 10/09/19 09:00 Zestril PO DAILY [facility] Nitroglycerin 0.4 mg 10/08/19 14:37 Nitrostat SUBLINGUAL Q5M PRN Chest Pain Nitroglycerin 0.5 inch 10/08/19 18:00 10/09/19 03:08 Nitro-Bid Oint TOPICAL Not Given Q6HR [facility] Sodium Chloride 10 ml 10/08/19 21:00 10/08/19 20:42 Saline Flush IV 10 ml BID JARRELL Administration Intake and Output 10/08/19 10/09/19 10/09/19 22:59 06:59 14:59 Other: Voiding Method Toilet Toilet # Voids 1 Weight 65.771 kg 65.9 kg 10/08/19 12:39 10/08/19 12:39 <Candelario Hernandes - Last Filed: 10/09/19 10:40> Physical Exam Vitals: Vital Signs Temp Pulse Pulse Resp BP BP Pulse Ox 10/09/19 07:00 98.3 F 78 18 113/73 92 L 10/09/19 03:49 84 18 10/09/19 03:47 98.2 F 84 18 124/64 94 L 10/09/19 00:00 98.1 F 79 18 115/65 96 10/08/19 20:00 99.3 F 77 18 122/70 93 L 10/08/19 15:34 98.6 F 80 19 134/77 97 10/08/19 15:04 76 10/08/19 14:56 80 10/08/19 14:52 98.0 F 80 18 128/74 96 10/08/19 12:07 98.1 F 85 20 132/63 95 Intake and Output 10/08/19 10/09/19 10/09/19 22:59 06:59 14:59 Intake Total 120 Balance 120 Intake: Oral 120 Other: Voiding Method Toilet Toilet Toilet # Voids 1 Weight 65.771 kg 65.9 kg Results 10/08/19 12:39 10/08/19 12:39 Cardiac Enzymes 10/08/19 10/08/19 10/08/19 Range/Units 12:39 12:39 17:37 AST 40 H (14-36) U/L Troponin I <0.012 <0.012 (0.000-0.034) ng/mL 10/08/19 Range/Units 23:57 AST (14-36) U/L Troponin I <0.012 (0.000-0.034) ng/mL Coagulation 10/08/19 Range/Units 12:39 PT 9.5 (9.0-12.0) sec APTT 26.1 (22.0-30.0) sec Lipids 10/09/19 Range/Units 05:26 Triglycerides 138 (<150) mg/dL Cholesterol 119 (<200) mg/dL HDL Cholesterol 43 (40-60) mg/dL CBC 10/08/19 Range/Units 12:39 WBC 4.7 (3.8-10.6) k/uL RBC 4.29 (3.80-5.40) m/uL Hgb 12.5 (11.4-16.0) gm/dL Hct 38.6 (34.0-46.0) % Plt Count 188 (150-450) k/uL Comprehensive Metabolic Panel 10/08/19 Range/Units 12:39 Sodium 135 L (137-145) mmol/L Potassium 4.9 (3.5-5.1) mmol/L Chloride 100 (98-107) mmol/L Carbon Dioxide 26 (22-30) mmol/L BUN 28 H (7-17) mg/dL Creatinine 0.96 (0.52-1.04) mg/dL Glucose 116 H (74-99) mg/dL Calcium 9.0 (8.4-10.2) mg/dL AST 40 H (14-36) U/L ALT 21 (4-34) U/L Alkaline Phosphatase 58 (38-126) U/L Total Protein 7.6 (6.3-8.2) g/dL Albumin 4.2 (3.5-5.0) g/dL Current Medications Generic Name Dose Route Start Last Admin Trade Name Freq PRN Reason Stop Dose Admin Artificial Tears 1 drops 10/09/19 09:00 Artificial Tear Drops BOTH EYES DAILY PRN Dry Eye(s) Aspirin 81 mg 10/09/19 09:00 10/09/19 09:21 Aspirin PO 81 mg DAILY JARRELL Administration Atorvastatin Calcium 10 mg 10/09/19 21:00 Lipitor PO HS [facility] Cholecalciferol 2,000 unit 10/09/19 09:00 10/09/19 09:21 Vitamin D3 (25 Mcg = 1000 Iu) PO 2,000 unit DAILY JARRELL Administration Famotidine 20 mg 10/09/19 09:00 Pepcid PO DAILY PRN Heartburn Glimepiride 1 mg 10/09/19 09:00 10/09/19 09:22 Amaryl PO 1 mg DAILY JARRELL Administration Lisinopril 40 mg 10/09/19 09:00 10/09/19 09:22 Zestril PO 40 mg DAILY JARRELL Administration Nitroglycerin 0.4 mg 10/08/19 14:37 Nitrostat SUBLINGUAL Q5M PRN Chest Pain Sodium Chloride 10 ml 10/08/19 21:00 10/09/19 09:22 Saline Flush IV 10 ml BID JARRELL Administration Intake and Output 02/23/20 02/24/20 02/24/20 22:59 06:59 14:59 Intake Total 120 Balance 120 Intake: Oral 120 Other: Voiding Method Toilet Toilet Toilet # Voids 1 Weight 65.771 kg 65.9 kg 10/08/19 12:39 10/08/19 12:39
--- NOTE | 2019-10-09 10:46 | ECHOF ---
Referral Reason:cp, dyspnea MEASUREMENTS -------- HEIGHT: 160.0 cm WEIGHT: 65.8 kg BP: 124/64 IVSd: 1.4 cm (0.6 - 1.1) LVIDd: 3.7 cm (3.9 - 5.3) LVPWd: 1.4 cm (0.6 - 1.1) IVSs: 1.6 cm LVIDs: 2.7 cm LVPWs: 1.4 cm RVIDd: 3.2 cm (< 3.3) LAESV Index (A-L): 21.40 ml/m Ao Diam: 3.2 cm (2.0 - 3.7) AV Cusp: 1.6 cm (1.5 - 2.6) EPSS: 0.8 cm MV E Willie: 0.84 m/s MV DecT: 226 ms MV A Willie: 1.24 m/s MV E/A Ratio: 0.68 AR PHT: 430 ms RAP: 5.00 mmHg RVSP: 14.22 mmHg MV EF SLOPE: 88.81 mm/s (70 - 150) MV EXCURSION: 14.13 mm (> 18.000) FINDINGS -------- Sinus rhythm. This was a technically adequate study. The left ventricular size is normal. There is moderate concentric left ventricular hypertrophy. O verall left ventricular systolic function is normal with, an EF between 55 - 60 %. The diastolic fi lling pattern is normal for the age of the patient 14.06. The right ventricle is normal in size. Normal LA size by volume 22+/-6 ml/m2. The right atrial size is normal. Mobile interatrial septum. The aortic valve is trileaflet and appears structurally normal. There is mild aortic regurgitation. There is no evidence of aortic stenosis. No mitral regurgitation. Mild tricuspid regurgitation present. There is no evidence of pulmonary hypertension. The right v entricular systolic pressure, as measured by Doppler, is 14.22mmHg. There is no pulmonic regurgitation present. The aortic root size is normal. IVC Not well visulized. There is no pericardial effusion. CONCLUSIONS -------- 1. Sinus rhythm. 2. This was a technically adequate study. 3. The left ventricular size is normal. 4. There is moderate concentric left ventricular hypertrophy. 5. Overall left ventricular systolic function is normal with, an EF between 55 - 60 %. 6. The diastolic filling pattern is normal for the age of the patient 14.06 7. The right ventricle is normal in size. 8. Normal LA size by volume 22+/-6 ml/m2. 9. The right atrial size is normal. 10. Mobile interatrial septum. 11. The aortic valve is trileaflet and appears structurally normal. 12. There is mild aortic regurgitation. 13. There is no evidence of aortic stenosis. 14. No mitral regurgitation. 15. Mild tricuspid regurgitation present. 16. There is no evidence of pulmonary hypertension. 17. The right ventricular systolic pressure, as measured by Doppler, is 14.22mmHg. 18. There is no pulmonic regurgitation present. 19. The aortic root size is normal. 20. IVC Not well visulized. 21. There is no pericardial effusion. THERMODYNAMICIST: Sada Pettit RDCS
[2019-10-09 11:02] VITALS: BP 112/70; PULSE 72; TEMP 98.1
[2019-10-09 11:31] LABS: Glucose,Whole Blood 115 mg/dL (75-99)
[2019-10-09] MEDS ORDERED: IPRATROPIUM-ALBUTEROL 3 ML NEB INHALATION STA (11:45)
--- NOTE | 2019-10-09 17:41 | P.HPIM ---
History of Present Illness H&P Date: 10/09/19 Chief Complaint: Coughing History of presenting complaint: This is a very pleasant [address] Najera. Chronic stable medical conditions include COPD, diabetes, GERD, hypertension, hyperlipidemia, Jasmin arthritis. Patient presents with one-day of increasing cough. Some shortness of breath some clear mucus. No fever or chills some wheezing. Just feeling tired. Some pain in the chest wall with coughing. Patient did receive bronchodilators. Feeling better with the same. Much improved this morning. Review of systems: GEN.: Tired EYES: None HEENT: None NECK: None RESPIRATORY: As above CARDIOVASCULAR: None GASTROINTESTINAL: None GENITOURINARY: None MUSCULOSKELETAL: Chest wall pain with coughing LYMPHATICS: None HEMATOLOGICAL: None PSYCHIATRY: None NEUROLOGICAL: None Past medical history to include: COPD, diabetes, GERD, hypertension, hyperlipidemia, osteoarthritis Social history: Does not smoke or drink alcohol. . Physical examination: VITAL SIGNS: 98.1, 85, 20, 132/63, 95% on room air GENERAL: BMI 25.7, sitting up comfortable. EYES: Pupils equal. Conjunctiva normal. HEENT: External appearance of nose and ears normal, oral cavity grossly normal. NECK: JVD not raised; masses not palpable. HEART: First and second heart sounds are normal; no edema. LUNGS: Respiratory rate normal; minimal wheezing. ABDOMEN: Soft, nontender, liver spleen not palpable, no masses palpable. PSYCH: Alert and oriented x3; mood and affect normal. MUSCULAR skeletal: Evidence of OA NEUROLOGICAL: Cranial nerves grossly intact; no facial asymmetry, power and sensation grossly intact. LYMPHATICS: No lymph nodes palpable in the axilla and neck INVESTIGATIONS, reviewed in the clinical context: White count 4.7 hemoglobin 12.5 platelets 188 potassium 4.9 crit 0.96 Troponin I 3 negative LDL 48 EKG tracing personally reviewed by me-rhythm Chest x-ray film personally reviewed by me-lung carlos clear Chest CTA-no PE mild fibrosis Assessment: -Acute tracheobronchitis with episode of coughing some shortness of breath some clear mucus. No fever no chills. Some wheezing. From secondary bronchospasm. -Chest wall pain likely musculoskeletal from coughing. -Mild COPD exacerbation and a nonsmoker -Diabetes mellitus type 2 -GERD -Hyperlipidemia -Essential hypertension -Primary osteoarthritis Plan: Patient was given bronchodilators in the ER. Did feel better with that. We'll repeat a dose today. 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 Home medications resumed. Accu-Cheks to be followed. Patient overall is feeling much better. Past Medical History Past Medical History: COPD, Diabetes Mellitus, GERD/Reflux, Hyperlipidemia, Hypertension, Osteoarthritis (OA) History of Any Multi-Drug Resistant Organisms: None Reported Past Surgical History: Hysterectomy Additional Past Surgical History / Comment(s): veins strip Past Anesthesia/Blood Transfusion Reactions: Motion Sickness Past Psychological History: No Psychological Hx Reported Smoking Status: Never smoker Past Alcohol Use History: None Reported Past Drug Use History: None Reported - Past Family History Mother Family Medical History: Cancer Additional Family Medical History / Comment(s): breast Father Family Medical History: Myocardial Infarction ([place]) Additional Family Medical History / Comment(s): fatal Sister(s) Family Medical History: Cancer Additional Family Medical History / Comment(s): breast cancer 2 sisters Medications and Allergies Home Medications Medication Instructions Recorded Confirmed Type Aspirin [Adult Low Dose Aspirin EC] 81 mg PO DAILY 03/05/18 10/08/19 History Quinapril HCl 40 mg PO DAILY 03/05/18 10/08/19 History Simvastatin [Zocor] 20 mg PO HS 03/05/18 10/08/19 History Artificial Tears-Hypromellose 1 drop BOTH EYES DAILY PRN 10/08/19 10/08/19 History [Artificial Tear Drops] Cholecalciferol (Vitamin D3) 2,000 unit PO DAILY 10/08/19 10/08/19 History [Vitamin D3] Famotidine [Pepcid] 20 mg PO DAILY PRN 10/08/19 10/08/19 History Glimepiride [Amaryl] 1 mg PO DAILY 10/08/19 10/08/19 History Albuterol Inhaler [Ventolin Hfa 1 - 2 puff INHALATION Q6HR PRN #1 10/09/19 Rx Inhaler] inhaler Allergies Allergy/AdvReac Type Severity Reaction Status Date / Time No Known Allergies Allergy Verified 10/08/19 14:11 Physical Exam Vitals: Vital Signs Temp Pulse Pulse Resp BP BP Pulse Ox 10/09/19 07:00 98.3 F 78 18 113/73 92 L 10/09/19 03:49 84 18 10/09/19 03:47 98.2 F 84 18 124/64 94 L 10/09/19 00:00 98.1 F 79 18 115/65 96 10/08/19 20:00 99.3 F 77 18 122/70 93 L 10/08/19 15:34 98.6 F 80 19 134/77 97 10/08/19 15:04 76 10/08/19 14:56 80 10/08/19 14:52 98.0 F 80 18 128/74 96 10/08/19 12:07 98.1 F 85 20 132/63 95 Intake and Output 10/08/19 10/09/19 10/09/19 22:59 06:59 14:59 Intake Total 120 Balance 120 Intake: Oral 120 Other: Voiding Method Toilet Toilet Toilet # Voids 1 Weight 65.771 kg 65.9 kg Results CBC & Chem 7: 10/08/19 12:39 10/08/19 12:39 Labs: Abnormal Lab Results - Last 24 Hours (Table) 10/08/19 10/08/19 10/08/19 Range/Units 12:39 12:39 12:39 Lymphocytes # (Manual) 0.61 L (1.0-4.8) k/uL D-Dimer 0.90 H (<0.60) mg/L FEU Sodium 135 L (137-145) mmol/L BUN 28 H (7-17) mg/dL Glucose 116 H (74-99) mg/dL POC Glucose (mg/dL) (75-99) mg/dL AST 40 H (14-36) U/L 10/09/19 Range/Units 08:00 Lymphocytes # (Manual) (1.0-4.8) k/uL D-Dimer (<0.60) mg/L FEU Sodium (137-145) mmol/L BUN (7-17) mg/dL Glucose (74-99) mg/dL POC Glucose (mg/dL) 108 H (75-99) mg/dL AST (14-36) U/L Thrombosis Risk Factor Assmnt - Choose All That Apply Any of the Below Risk Factors Present?: Yes Each Factor Represents 1 point: Abnormal pulmonary function (COPD), Obesity (BMI >25) Other Risk Factors: Yes Each Risk Factor Represents 3 Points: Age 75 years or older Other congenital or acquired thrombophilia - If yes, enter type in comment: No Thrombosis Risk Factor Assessment Total Risk Factor Score: 5 Thrombosis Risk Factor Assessment Level: High Risk
--- NOTE | 2019-10-09 17:44 | P.DS ---
Providers Date of admission: 10/08/19 14:37 Expected date of discharge: 10/09/19 Attending physician: Masoud Lam Consults: 10/08/19 14:37 Consult Physician Urgent Consulting Provider: James Ham Consult Reason/Comments: cp Do you want consulting provider notified?: Yes Primary care physician: Alvaro Najera [facility] Course: Chief Complaint: Coughing History of presenting complaint: This is a very pleasant [address] Najera. Chronic stable medical conditions include COPD, diabetes, GERD, hypertension, hyperlipidemia, Jasmin arthritis. Patient presents with one-day of increasing cough. Some shortness of breath some clear mucus. No fever or chills some wheezing. Just feeling tired. Some pain in the chest wall with coughing. Patient did receive bronchodilators. Feeling better with the same. Much improved this morning. Admitted with bilateral tracheobronchitis. Secondary bronchospasm. Responded well to bronchodilators. [place] back to normal self. Seen by Stew a day. Okay to be discharged. Consultation: Dr. Luis Hernandes from cardiology Physical examination: VITAL SIGNS: 98, 80, 18, 132/74, potassium 6% on room air GENERAL: BMI 25.7, sitting up comfortable. EYES: Pupils equal. Conjunctiva normal. HEENT: External appearance of nose and ears normal, oral cavity grossly normal. NECK: JVD not raised; masses not palpable. HEART: First and second heart sounds are normal; no edema. LUNGS: Respiratory rate normal; fair air entry ABDOMEN: Soft, nontender, liver spleen not palpable, no masses palpable. PSYCH: Alert and oriented x3; mood and affect normal. MUSCULAR skeletal: Evidence of OA INVESTIGATIONS, reviewed in the clinical context: White count 4.7 hemoglobin 12.5 platelets 188 potassium 4.9 crit 0.96 Troponin I 3 negative LDL 48 EKG tracing personally reviewed by me-rhythm Chest x-ray film personally reviewed by me-lung carlos clear Chest CTA-no PE mild fibrosis 2-D echo-EF 55-60% moderate LVH Assessment: -Acute tracheobronchitis with episode of coughing some shortness of breath some clear mucus. No fever no chills. Some wheezing. From secondary bronchospasm. -Chest wall pain likely musculoskeletal from coughing. -Mild COPD exacerbation in a nonsmoker -Hypertensive heart disease -Diabetes mellitus type 2 -GERD -Hyperlipidemia -Essential hypertension -Primary osteoarthritis Disposition: Home Patient Condition at Discharge: Stable Plan - Discharge Summary Discharge Rx Participant: Yes New Discharge Prescriptions: New Albuterol Inhaler [Ventolin Hfa Inhaler] 1 - 2 puff INHALATION Q6HR PRN #1 inhaler PRN Reason: Wheezing Continue Simvastatin [Zocor] 20 mg PO HS Quinapril HCl 40 mg PO DAILY Aspirin [Adult Low Dose Aspirin EC] 81 mg PO DAILY Glimepiride [Amaryl] 1 mg PO DAILY Famotidine [Pepcid] 20 mg PO DAILY PRN PRN Reason: Heartburn Artificial Tears-Hypromellose [Artificial Tear Drops] 1 drop BOTH EYES DAILY PRN PRN Reason: Dry Eye(S) Cholecalciferol (Vitamin D3) [Vitamin D3] 2,000 unit PO DAILY Discharge Medication List Aspirin [Adult Low Dose Aspirin EC] 81 mg PO DAILY 03/05/18 [History] Quinapril HCl 40 mg PO DAILY 03/05/18 [History] Simvastatin [Zocor] 20 mg PO HS 03/05/18 [History] Artificial Tears-Hypromellose [Artificial Tear Drops] 1 drop BOTH EYES DAILY PRN 10/08/19 [History] Cholecalciferol (Vitamin D3) [Vitamin D3] 2,000 unit PO DAILY 10/08/19 [History] Famotidine [Pepcid] 20 mg PO DAILY PRN 10/08/19 [History] Glimepiride [Amaryl] 1 mg PO DAILY 10/08/19 [History] Albuterol Inhaler [Ventolin Hfa Inhaler] 1 - 2 puff INHALATION Q6HR PRN #1 inhaler 10/09/19 [Rx] Follow up Appointment(s)/Referral(s): Candelario Hernandes MD [STAFF PHYSICIAN] - 2 Weeks (Follow-up with Dr. Hernandes/Aydee Eli/Una Cotto) Alvaro Najera MD [Primary Care Provider] - 1-2 days Discharge Disposition: HOME SELF-CARE
[2019-10-09] MEDS ORDERED: ATORVASTATIN 10 MG TAB PO SCH (21:00)
== END 2019-10-09 12:25 | disposition home or self-care (01) ==
LOC: EC 12:07 → 1SOBS 14:37
PROVIDERS: ADMIT Hospitalist; ATTEND Hospitalist
DX: J20.9 Acute bronchitis, unspecified (principal); J44.0 Chronic obstructive pulmonary disease with (acute) lower respiratory infection; J44.1 Chronic obstructive pulmonary disease with (acute) exacerbation; R07.89 Other chest pain; E11.9 Type 2 diabetes mellitus without complications; K21.9 Gastro-esophageal reflux disease without esophagitis; E78.5 Hyperlipidemia, unspecified; I10 Essential (primary) hypertension; M19.90 Unspecified osteoarthritis, unspecified site; Z79.82 Long term (current) use of aspirin; Z79.899 Other long term (current) drug therapy; Z90.710 Acquired absence of both cervix and uterus; Z80.3 Family history of malignant neoplasm of breast; Z82.49 Family history of ischemic heart disease and other diseases of the circulatory system
CPT/HCPCS: 99285; 36415; 93005 ×2; 93306; 85379; 83880; 80061; 80053; 82550; 83605; 84484; 85025; 85610; 85730; 71046; 71275; G0378 ×2; Q9967

== ENCOUNTER 2023-10-28 18:50 | Observation (INO) | payer MEDICARE ==
--- NOTE | 2023-10-28 19:53 | ED ---
Neuro HPI - General Chief Complaint: Neuro Symptoms/Deficit Stated Complaint: Numbness in R side of face Time Seen by Provider: 10/28/23 18:53 Source: patient, RN notes reviewed Mode of arrival: ambulatory Limitations: no limitations - History of Present Illness Is the patient presenting with stroke symptoms?: No Initial Comments: 83-year-old female with no prior history of stroke or coronary artery disease that she knows of who was playing cards at her residence just prior to arrival when he started developing numbness to her face on the right side with right facial droop also garbled speech and dropped the card she was holding her dominant right hand. He had this weakness lasting about 20 minutes then it totally resolved. At this time she is totally back to normal she states and her son concurs. No fevers chills sweats nausea vomiting no recent trauma no other complaints or modifying factors at this time. The patient does states she takes 81 mg of aspirin every day. - Related Data Home Medications: Home Medications Medication Instructions Recorded Confirmed Aspirin [Adult Low Dose Aspirin EC] 81 mg PO DAILY 03/05/18 10/28/23 Simvastatin [Zocor] 20 mg PO HS 03/05/18 10/28/23 Cholecalciferol (Vitamin D3) 50 mcg PO DAILY 10/08/19 10/28/23 [Vitamin D3] Glimepiride [Amaryl] 1 mg PO DAILY 10/08/19 10/28/23 Omeprazole [PriLOSEC] 20 mg PO DAILY 10/28/23 10/28/23 lisinopriL 40 mg PO DAILY 10/28/23 10/28/23 Allergies/Adverse Reactions: Allergies Allergy/AdvReac Type Severity Reaction Status Date / Time No Known Allergies Allergy Verified 10/28/23 18:58 Review of Systems ROS Statement: Those systems with pertinent positive or pertinent negative responses have been documented in the HPI. ROS Other: All systems not noted in ROS Statement are negative. General Exam - General Exam Comments Initial Comments: This is a well-developed well-nourished awake alert oriented x 4 female Limitations: no limitations General appearance: alert, in no apparent distress Head exam: Present: atraumatic, normocephalic, normal inspection Eye exam: Present: normal appearance, PERRL, EOMI. Absent: scleral icterus, conjunctival injection, periorbital swelling ENT exam: Present: mucous membranes dry, mucous membranes moist Neck exam: Present: normal inspection, full ROM, other (No stridor JVD or bruits). Absent: tenderness, meningismus, lymphadenopathy Respiratory exam: Present: normal lung sounds bilaterally. Absent: respiratory distress, wheezes, rales, rhonchi, stridor Cardiovascular Exam: Present: regular rate, normal rhythm, normal heart sounds. Absent: systolic murmur, diastolic murmur, rubs, gallop, clicks GI/Abdominal exam: Present: soft, normal bowel sounds. Absent: distended, tenderness, guarding, rebound, rigid, bruit, pulsatile mass Extremities exam: Present: normal inspection, full ROM, normal capillary refill. Absent: tenderness, pedal edema, joint swelling, calf tenderness Back exam: Present: normal inspection Neurological exam: Present: alert, oriented X3, CN II-XII intact Psychiatric exam: Present: normal affect, normal mood Skin exam: Present: warm, dry, intact, normal color. Absent: rash Stroke MDM - Lab Data Result diagrams: 10/28/23 20:07 10/28/23 20:07 Lab Results 10/28/23 10/28/23 10/28/23 Range/Units 20:07 20:07 20:07 WBC 5.6 (3.8-10.6) k/uL RBC 3.96 (3.80-5.40) m/uL Hgb 12.2 (11.4-16.0) gm/dL Hct 37.0 (34.0-46.0) % MCV 93.5 (80.0-100.0) fL MCH 30.9 (25.0-35.0) pg MCHC 33.1 (31.0-37.0) g/dL RDW 14.2 (11.5-15.5) % Plt Count 193 (150-450) k/uL MPV 7.7 Neutrophils % 68 % Lymphocytes % 18 % Monocytes % 9 % Eosinophils % 2 % Basophils % 1 % Neutrophils # 3.8 (1.3-7.7) k/uL Lymphocytes # 1.0 (1.0-4.8) k/uL Monocytes # 0.5 (0-1.0) k/uL Eosinophils # 0.1 (0-0.7) k/uL Basophils # 0.0 (0-0.2) k/uL PT 10.2 (10.0-12.5) sec INR 0.9 (<1.2) APTT 22.0 (22.0-30.0) sec Sodium 139 (137-145) mmol/L Potassium 4.3 (3.5-5.1) mmol/L Chloride 104 (98-107) mmol/L Carbon Dioxide 25 (22-30) mmol/L Anion Gap 10 mmol/L BUN 17 (7-17) mg/dL Creatinine 0.69 (0.52-1.04) mg/dL Est GFR (CKD-EPI)AfAm >90 (>60 ml/min/1.73 sqM) Est GFR (CKD-EPI)NonAf 80 (>60 ml/min/1.73 sqM) Glucose 90 (74-99) mg/dL Calcium 9.0 (8.4-10.2) mg/dL Total Bilirubin 0.7 (0.2-1.3) mg/dL AST 28 (14-36) U/L ALT 10 (4-34) U/L Alkaline Phosphatase 58 (38-126) U/L Creatine Kinase 68 (30-135) U/L Troponin I (0.000-0.034) ng/mL Total Protein 7.5 (6.3-8.2) g/dL Albumin 4.2 (3.5-5.0) g/dL 10/28/23 Range/Units 20:07 WBC (3.8-10.6) k/uL RBC (3.80-5.40) m/uL Hgb (11.4-16.0) gm/dL Hct (34.0-46.0) % MCV (80.0-100.0) fL MCH (25.0-35.0) pg MCHC (31.0-37.0) g/dL RDW (11.5-15.5) % Plt Count (150-450) k/uL MPV Neutrophils % % Lymphocytes % % Monocytes % % Eosinophils % % Basophils % % Neutrophils # (1.3-7.7) k/uL Lymphocytes # (1.0-4.8) k/uL Monocytes # (0-1.0) k/uL Eosinophils # (0-0.7) k/uL Basophils # (0-0.2) k/uL PT (10.0-12.5) sec INR (<1.2) APTT (22.0-30.0) sec Sodium (137-145) mmol/L Potassium (3.5-5.1) mmol/L Chloride (98-107) mmol/L Carbon Dioxide (22-30) mmol/L Anion Gap mmol/L BUN (7-17) mg/dL Creatinine (0.52-1.04) mg/dL Est GFR (CKD-EPI)AfAm (>60 ml/min/1.73 sqM) Est GFR (CKD-EPI)NonAf (>60 ml/min/1.73 sqM) Glucose (74-99) mg/dL Calcium (8.4-10.2) mg/dL Total Bilirubin (0.2-1.3) mg/dL AST (14-36) U/L ALT (4-34) U/L Alkaline Phosphatase (38-126) U/L Creatine Kinase (30-135) U/L Troponin I <0.012 (0.000-0.034) ng/mL Total Protein (6.3-8.2) g/dL Albumin (3.5-5.0) g/dL - NIH Stroke Scale 1a. Level of Consciousness: (0) alert 1b. LOC Questions: (0) answers correctly 1c. LOC Commands: (0) performs tasks correctly 2. Best Gaze: (0) normal 3. Visual: (0) no visual loss 4. Facial Palsy: (0) normal symmetrical movement 5a. Motor Arm Left: (0) no drift 5b. Motor Arm Right: (0) no drift 6a. Motor Leg Left: (0) no drift 6b. Motor Leg Right: (0) no drift 7. Limb Ataxia: (0) absent 8. Sensory: (0) normal 9. Best Language: (0) no aphasia 10. Dysarthria: (0) normal 11. Extinction/Inattention: (0) no abnormality - Medical Decision Making I did discuss the findings with the patient and family members the patient demonstrates evidence of a TIA. I did discuss the case with Dr. Bedolla who did come to the patient the emergency department the patient be admitted with consultation by neurology. Patient was noted to have elevated blood pressure she does take medication. She is clinically somewhat dehydrated. Was pt. sent in by a medical professional or institution (, [facility], BARREL ASSEMBLY INSPECTOR, urgent care, hospital, or group home...) When possible be specific @ -No Did you speak to anyone other than the patient for history (EMS, parent, family, police, friend...)? What history was obtained from this source @ -Family members Did you review nursing and triage notes (agree or disagree)? Why? @ -I reviewed and agree with nursing and triage notes Were old charts reviewed (outside hosp., previous admission, EMS record, old EKG, old radiological studies, urgent care reports/EKG's, group home records)? Report findings @ -Old charts were reviewed Differential Diagnosis (chest pain, altered mental status, abdominal pain women, abdominal pain men, vaginal bleeding, weakness, fever, dyspnea, syncope, headache, dizziness, GI bleed, back pain, seizure, CVA, palpatations, mental health, musculoskeletal)? @ -TIA EKG interpreted by me (3pts min.). @ -EKG interpreted by me sinus rhythm of 71 NE interval 187 QRS duration 80 QT/QTc 400/422 nonspecific T wave configuration no acute ST-T wave changes X-rays interpreted by me (1pt min.). @ -Chest x-ray interpreted by me no acute process seen CT interpreted by me (1pt min.). @ -CAT scan of the brain interpreted by me no evidence of acute process U/S interpreted by me (1pt. min.). @ -None done What testing was considered but not performed or refused? (CT, X-rays, U/S, labs)? Why? @ -None What meds were considered but not given or refused? Why? @ -None Did you discuss the management of the patient with other professionals (professionals i.e. , [facility], BARREL ASSEMBLY INSPECTOR, lab, RT, psych nurse, social work administrator, motor inspection mechanic, teacher, electronic intelligence officer, heel caser)? Give summary @ -Dr. Bedolla Was smoking cessation discussed for >3mins.? @ -No Was critical care preformed (if so, how long)? @ -31 minutes Were there social determinants of health that impacted care today? How? (Homelessness, low income, unemployed, alcoholism, drug addiction, tra nsportation, low edu. Level, literacy, decrease access to med. care, intermediate, rehab)? @ -No Was there de-escalation of care discussed even if they declined (Discuss DNR or withdrawal of care, Hospice)? DNR status @ -No What co-morbidities impacted this encounter? (DM, HTN, Smoking, COPD, CAD, Cancer, CVA, ARF, Chemo, Hep., AIDS, mental health diagnosis, sleep apnea, morbid obesity)? @ -Hypertension diabetes hyperlipidemia COPD Was patient admitted / discharged? Hospital course, mention meds given and route, prescriptions, significant lab abnormalities, going to OR and other pertinent info. @ -[hospital course was admitted for inpatient evaluation of TIA symptoms Undiagnosed new problem with uncertain prognosis? @ -TIA Drug Therapy requiring intensive monitoring for toxicity (Heparin, Nitro, Insulin, Cardizem)? @ -No Were any procedures done? @ -No Diagnosis/symptom? @ -TIA Acute, or Chronic, or Acute on Chronic? @ -Acute Uncomplicated (without systemic symptoms) or Complicated (systemic symptoms)? @ -Complicated Side effects of treatment? @ -No Exacerbation, Progression, or Severe Exacerbation? @ -No Poses a threat to life or bodily function? How? (Chest pain, [place], [place], pneumonia, PE, COPD, DKA, ARF, appy, cholecystitis, CVA, Diverticulitis, Homicidal, Suicidal, threat to staff... and all critical care pts) @ -Potential Past Medical History Past Medical History: COPD, Diabetes Mellitus, GERD/Reflux, Hyperlipidemia, Hypertension, Osteoarthritis (OA) History of Any Multi-Drug Resistant Organisms: None Reported Past Surgical History: Hysterectomy Additional Past Surgical History / Comment(s): veins strip Past Anesthesia/Blood Transfusion Reactions: Motion Sickness Past Psychological History: No Psychological Hx Reported Smoking Status: Never smoker Past Alcohol Use History: None Reported Past Drug Use History: None Reported - Past Family History Mother Family Medical History: Cancer Additional Family Medical History / Comment(s): breast Father Family Medical History: Myocardial Infarction ([place]) Additional Family Medical History / Comment(s): fatal Sister(s) Family Medical History: Cancer Additional Family Medical History / Comment(s): breast cancer 2 sisters Course Vital Signs 10/28/23 10/28/23 10/28/23 18:53 19:21 20:32 Temperature 98.4 F 98.0 F Pulse Rate 73 70 66 Respiratory 18 16 16 Rate Blood Pressure 207/80 192/94 189/89 O2 Sat by Pulse 97 96 96 Oximetry 10/28/23 10/28/23 21:30 22:30 Temperature Pulse Rate 71 71 Respiratory 13 17 Rate Blood Pressure 183/65 181/88 O2 Sat by Pulse 97 95 Oximetry Critical Care Time Critical Care Time: Yes Total Critical Care Time: 31 Disposition Clinical Impression: Transient cerebral ischemia, Hypertension, Dehydration Disposition: ADMITTED IP TO THIS [facility] Condition: Stable Referrals: Alvaro Najera MD [Primary Care Provider] - 1-2 days Decision Date: 10/28/23 Decision Time: 23:00
[2023-10-28 20:30] LABS: Basophils % (A) 1 %; Eosinophils # (A) 0.1 k/uL (0-0.7); Eosinophils % (A) 2 %; HGB 12.2 gm/dL (11.4-16.0); Lymphocytes % (A) 18 %; MCH 30.9 pg (25.0-35.0); MCHC 33.1 g/dL (31.0-37.0); MCV 93.5 fL (80.0-100.0); Mean Platelet Volume 7.7; Monocytes # (A) 0.5 k/uL (0-1.0); Monocytes % (A) 9 %; Neutrophils # (A) 3.8 k/uL (1.3-7.7); Neutrophils % (A) 68 %; Platelet Count 193 k/uL (150-450); RBC 3.96 m/uL (3.80-5.40); RDW 14.2 % (11.5-15.5); WBC 5.6 k/uL (3.8-10.6)
[2023-10-28] MEDS: SODIUM CHLORIDE 0.9% 500 ML 500 ML IV STA (20:40)
[2023-10-28] MEDS: SODIUM CHLORIDE 0.9% 1,000 ML IV STA (20:41)
[2023-10-28 20:45] LABS: INR 0.9 (<1.2); Prothrombin Time 10.2 sec (10.0-12.5)
--- NOTE | 2023-10-28 20:50 | XR ---
EXAM: XR Chest, 2 Views CLINICAL HISTORY: ITS.REASON XR Reason: altered mental status TECHNIQUE: Frontal and lateral views of the chest. COMPARISON: No relevant prior studies available. FINDINGS: Lungs: Unremarkable. No consolidation. Pleural space: Unremarkable. No pneumothorax. Heart: Cardiomegaly. Mediastinum: Unremarkable. Normal mediastinal contour. Bones/joints: Old fracture of the RIGHT proximal humerus. IMPRESSION: No acute findings in the chest.
[2023-10-28 21:07] LABS: ALT 10 U/L (4-34); African American GFR (CKD) >90 (>60 ml/min/1.73 sqM); Anion Gap 10 mmol/L; Blood Urea Nitrogen 17 mg/dL (7-17); Carbon Dioxide 25 mmol/L (22-30); Chloride 104 mmol/L (98-107); Creatine Kinase 68 U/L (30-135); Glucose 90 mg/dL (74-99); Non-African American GFR(CKD) 80 (>60 ml/min/1.73 sqM); Sodium 139 mmol/L (137-145); Total Bilirubin 0.7 mg/dL (0.2-1.3)
[2023-10-28 21:31] LABS: Potassium 4.3 mmol/L (3.5-5.1)
[2023-10-28 21:32] LABS: AST 28 U/L (14-36); Albumin 4.2 g/dL (3.5-5.0); Alkaline Phosphatase 58 U/L (38-126); Total Protein 7.5 g/dL (6.3-8.2)
--- NOTE | 2023-10-28 22:21 | CT ---
EXAM: CT Head Without Intravenous Contrast CLINICAL HISTORY: ITS.REASON CT Reason: Neuro deficit, acute, stroke suspected TECHNIQUE: Axial computed tomography images of the head/brain without intravenous contrast. This CT exam was performed using one or more of the following dose reduction techniques: automated exposure control, adjustment of the mA and/or kV according to patient size, and/or use of iterative reconstruction technique. COMPARISON: No relevant prior studies available. FINDINGS: No acute intracranial hemorrhage. No midline shift or mass effect. The territorial menezes-white matter differentiation is maintained throughout. Age-related cerebral volume loss. Periventricular and subcortical white matter hypoattenuation, consistent with chronic microangiopathy. The visualized orbits appear grossly unremarkable. The calvarium is intact. The visualized paranasal sinuses and mastoid air cells are grossly clear. IMPRESSION: No acute intracranial hemorrhage, midline shift, or mass effect.
--- NOTE | 2023-10-28 22:52 | CT ---
EXAM: CT Angiography Head With Intravenous Contrast CLINICAL HISTORY: ITS.REASON CT Reason: Neuro deficit, acute, stroke suspected TECHNIQUE: Axial computed tomographic angiography images of the head with intravenous contrast. CTDI is 48.8 mGy and DLP is 1084 mGy-cm. This CT exam was performed using one or more of the following dose reduction techniques: automated exposure control, adjustment of the mA and/or kV according to patient size, and/or use of iterative reconstruction technique. MIP reconstructed images were created and reviewed. COMPARISON: No relevant prior studies available. FINDINGS: Right internal carotid artery: No acute findings. Intracranial segment is patent with no significant stenosis. No aneurysm. Right anterior cerebral artery: Trifurcation anterior cerebral artery. Right middle cerebral artery: No occlusion or significant stenosis. No aneurysm. Right posterior cerebral artery: origin of the posterior cerebral arteries. Right vertebral artery: Small vertebral arteries. Left internal carotid artery: No acute findings. Intracranial segment is patent with no significant stenosis. No aneurysm. Left anterior cerebral artery: See above. Left middle cerebral artery: No occlusion or significant stenosis. No aneurysm. Left posterior cerebral artery: See above. Left vertebral artery: See above. Basilar artery: Small basilar artery. IMPRESSION: No large vessel occlusion or aneurysm. EXAM: CT Angiography Neck With Intravenous Contrast CLINICAL HISTORY: ITS.REASON CT Reason: Neuro deficit, acute, stroke suspected TECHNIQUE: Routine carotid CT angiography protocol was performed with intravenous contrast. NASCET criteria using the distal ICAs for comparison were used for evaluation of stenoses. CTDI is 7.8 mGy and DLP is 370.6 mGy-cm. This CT exam was performed using one or more of the following dose reduction techniques: automated exposure control, adjustment of the mA and/or kV according to patient size, and/or use of iterative reconstruction technique. MIP reconstructed images were created and reviewed. COMPARISON: None. FINDINGS: VASCULATURE: Right common carotid artery: No significant stenosis. No dissection or occlusion. Right internal carotid artery: Tortuous carotid arteries. Mild calcified and noncalcified plaque right carotid bifurcation, proximal internal carotid artery. No stenosis. Right external carotid artery: No occlusion. Right vertebral artery: No significant stenosis. No dissection or occlusion. Left common carotid artery: No significant stenosis. No dissection or occlusion. Left internal carotid artery: Calcified plaque left carotid bifurcation, proximal internal carotid artery. 20% stenosis proximal left internal carotid artery. Left external carotid artery: No occlusion. Left vertebral artery: No significant stenosis. No dissection or occlusion. Brachiocephalic and subclavian arteries: Aberrant right subclavian artery. Aorta: Mild calcified and noncalcified plaque thoracic aorta. NECK: Bones/joints: No acute findings. Soft tissues: Unremarkable. Lung apices: No acute disease. CAROTID STENOSIS REFERENCE USING NASCET CRITERIA: % ICA stenosis = (1 - narrowest ICA diameter/diameter of distal cervical ICA) x 100. Mild - <50% stenosis. Moderate - 50-69% stenosis. Severe - 70-94% stenosis. Near occlusion - 95-99% stenosis. Occluded - 100% stenosis. IMPRESSION: No acute findings in the arteries of the neck.
[2023-10-28] MEDS ORDERED: ACETAMINOPHEN TAB 325 MG TAB PO PRN (23:28)
[2023-10-28] MEDS: SODIUM CHLORIDE 0.9% 1,000 ML IV SCH (23:36)
[2023-10-28] MEDS: CLOPIDOGREL 75 MG TAB PO STA (23:41)
--- NOTE | 2023-10-29 01:22 | P.HPIM ---
History of Present Illness H&P Date: 10/28/23 Patient is a 83-year-old female with a PMH of hypertension, hyperlipidemia, and type II DM who presents to the emergency room with complaints of right facial droop and right arm weakness. Patient notes that she was at home this evening sitting with her family playing cards when she suddenly developed a right facial droop with slurred speech and right hand weakness. The symptoms lasted for around 15 minutes and then resolved completely. She reports feeling at her baseline at the time of interview. She denied experiencing visual disturbances, headaches, weakness elsewhere, nausea, vomiting, or dizziness. Denies any prior history of such symptoms. Does report a family history of CVA with her father suffering from a stroke. Also denies experiencing chest discomfort, palpitations, shortness of breath, fever, chills, cough. CT angiogram head neck and and CT brain were unremarkable with no acute abnormalities with EKG showing sinus rhythm at 71 bpm with T wave flattening in leads V2 to V4 as reviewed by me. Chest x-ray was unremarkable. Laboratory evaluation was remarkable for troponin less than 0.012, WBC count 5.6, hemoglobin 12.2, sodium 139, potassium 4.3, creatinine 0.69. ED documentation reviewed and case discussed with ED provider. Review of systems: Pertinent positives and negatives as discussed in HPI, a complete review of systems was performed and all other systems are negative. Physical examination: Vital signs reviewed General: non toxic, no distress, appears at stated age, normal weight Derm: no unusual rashes/lesions, warm Head: atraumatic, normocephalic, symmetric Eyes: EOMI, no lid lag, anicteric sclera, pupils equal round reactive to light ENT: Nose and ears atraumatic Neck: No cervical lymphadenopathy, trachea midline, supple Mouth: no lip lesion, mucus membranes moist Cardiovascular: S1S2 reg, no murmur, positive dorsalis pedis pulse bilateral, no edema Lungs: CTA bilateral, no rhonchi, no rales, no accessory muscle use Abdominal: soft, nontender to palpation, no guarding Ext: muscle strength 5 out of 5 in all 4 extremities grossly, no gross muscle atrophy, no contractures, Neuro: CN II-XI grossly intact, no gross focal neuro deficits Psych: Alert, oriented, appropriate affect Assessment: Transient ischemic attack Chronic conditions: Type II DM, hypertension, hyperlipidemia Imaging: CT angiogram head neck and and CT brain were unremarkable with no acute abnormalities with EKG showing sinus rhythm at 71 bpm with T wave flattening in leads V2 to V4 as reviewed by me. Chest x-ray was unremarkable. Data Review: Laboratory evaluation was remarkable for troponin less than 0.012, WBC count 5.6, hemoglobin 12.2, sodium 139, potassium 4.3, creatinine 0.69. Plan: Neurology consulted Continue with aspirin and statin Cardiac monitoring Obtain echocardiogram Neurochecks Fall precautions PT consult ENGLISH PROFESSOR consult DVT prophylaxis: Lovenox subcu The patient is admitted with an anticipated less than 2 midnight stay for evalua tion of TIA CODE STATUS: Full Code Discussed with: Patient Anticipated discharge place: Home Past Medical History Past Medical History: COPD, Diabetes Mellitus, GERD/Reflux, Hyperlipidemia, Hypertension, Osteoarthritis (OA) History of Any Multi-Drug Resistant Organisms: None Reported Past Surgical History: Hysterectomy Additional Past Surgical History / Comment(s): veins strip Past Anesthesia/Blood Transfusion Reactions: Motion Sickness Past Psychological History: No Psychological Hx Reported Smoking Status: Never smoker Past Alcohol Use History: None Reported Past Drug Use History: None Reported - Past Family History Mother Family Medical History: Cancer Additional Family Medical History / Comment(s): breast Father Family Medical History: Myocardial Infarction ([place]) Additional Family Medical History / Comment(s): fatal Sister(s) Family Medical History: Cancer Additional Family Medical History / Comment(s): breast cancer 2 sisters Medications and Allergies Home Medications Medication Instructions Recorded Confirmed Type Aspirin [Adult Low Dose Aspirin EC] 81 mg PO DAILY 03/05/18 10/28/23 History Simvastatin [Zocor] 20 mg PO HS 03/05/18 10/28/23 History Cholecalciferol (Vitamin D3) 50 mcg PO DAILY 10/08/19 10/28/23 History [Vitamin D3] Glimepiride [Amaryl] 1 mg PO DAILY 10/08/19 10/28/23 History Omeprazole [PriLOSEC] 20 mg PO DAILY 10/28/23 10/28/23 History lisinopriL 40 mg PO DAILY 10/28/23 10/28/23 History Allergies Allergy/AdvReac Type Severity Reaction Status Date / Time No Known Allergies Allergy Verified 10/28/23 18:58 Physical Exam Vitals: Vital Signs Temp Pulse Resp BP Pulse Ox 10/28/23 23:46 97.8 F 70 16 177/78 95 10/28/23 22:30 71 17 181/88 95 10/28/23 21:30 71 13 183/65 97 10/28/23 20:32 98.0 F 66 16 189/89 96 10/28/23 19:21 70 16 192/94 96 10/28/23 18:53 98.4 F 73 18 207/80 97 Intake and Output 10/28/23 10/28/23 10/29/23 14:59 22:59 06:59 Other: Weight 60.328 kg Results CBC & Chem 7: 10/28/23 20:07 10/28/23 20:07
[2023-10-29] MEDS: ATORVASTATIN 80 MG TAB PO STA (02:03)
[2023-10-29 08:43] LABS: LDL Cholesterol,Calculated 51.3 mg/dL (0.0-131.0)
[2023-10-29] MEDS ORDERED: GLIMEPIRIDE 1 MG TAB PO SCH (09:00)
[2023-10-29] MEDS: CHOLECALCIFEROL 25 MCG (1000 IU) TABLET PO SCH (09:07)
[2023-10-29] MEDS: ENOXAPARIN 40 MG/0.4 ML SYRINGE SQ SCH (09:07)
[2023-10-29] MEDS: PANTOPRAZOLE 40 MG TABLET PO SCH (09:07)
[2023-10-29] MEDS: lisinopriL 20 MG TAB PO SCH (09:07)
[2023-10-29] MEDS: ASPIRIN 81 MG PO SCH (09:07)
--- NOTE | 2023-10-29 10:24 | P.CNNES ---
History of Present Illness Consult date: 10/29/23 Requesting physician: Rafita Escalante Reason for Consult: tia History of Present Illness: This is an 83-year-old woman who presented emergency department because of right facial droop speech difficulty and difficulty getting her words out. She stated that at her symptoms began yesterday at 6:15 PM while playing cards. It seems the her symptoms lasted about 20 minutes then resolved. She feels back to baseline. She denies any history of stroke in the past. She does take aspirin 81 mg daily. She has underlying history of hypertension and she is on medication. She denies any atrial fibrillation or flutter. Denies any history of stroke or TIA in the past. Some of the workup during this hospital visit consisted of: Initial blood pressure is 207/80 CBC with differential is unremarkable Chemistry panel is unremarkable Lipid panel is triglycerides 190, cholesterol is 134, LDLs 51 and HDL is 44 CT of the head is reported as no acute intracranial hemorrhage, midline shift or mass effect. I personally reviewed this T the head and I feel the patient has lacunar stroke over the left basal ganglia that seems old. CT angiography of the head and neck was reported as no acute finding of arteries of the neck as well as no large vessel occlusion or aneurysm. Review of Systems Review of system: The 12 point system was reviewed and apparent positive and negative per HPI. Past Medical History Past Medical History: COPD, Diabetes Mellitus, GERD/Reflux, Hyperlipidemia, Hypertension, Osteoarthritis (OA) History of Any Multi-Drug Resistant Organisms: None Reported Past Surgical History: Hysterectomy Additional Past Surgical History / Comment(s): veins strip Past Anesthesia/Blood Transfusion Reactions: Motion Sickness Past Psychological History: No Psychological Hx Reported Smoking Status: Never smoker Past Alcohol Use History: None Reported Past Drug Use History: None Reported - Past Family History Mother Family Medical History: Cancer Additional Family Medical History / Comment(s): breast Father Family Medical History: Myocardial Infarction ([place]) Additional Family Medical History / Comment(s): fatal Sister(s) Family Medical History: Cancer Additional Family Medical History / Comment(s): breast cancer 2 sisters Medications and Allergies Home Medications Medication Instructions Recorded Confirmed Type Aspirin [Adult Low Dose Aspirin EC] 81 mg PO DAILY 03/05/18 10/28/23 History Simvastatin [Zocor] 20 mg PO HS 03/05/18 10/28/23 History Cholecalciferol (Vitamin D3) 50 mcg PO DAILY 10/08/19 10/28/23 History [Vitamin D3] Glimepiride [Amaryl] 1 mg PO DAILY 10/08/19 10/28/23 History Omeprazole [PriLOSEC] 20 mg PO DAILY 10/28/23 10/28/23 History lisinopriL 40 mg PO DAILY 10/28/23 10/28/23 History Allergies Allergy/AdvReac Type Severity Reaction Status Date / Time No Known Allergies Allergy Verified 10/28/23 18:58 Physical Examination - Vital Signs Vital Signs: Vital Signs Temp Pulse Pulse Resp BP BP Pulse Ox 10/29/23 07:56 97.8 F 68 17 181/79 96 10/29/23 06:46 98.7 F 68 18 166/78 95 10/28/23 23:46 97.8 F 70 16 177/78 95 10/28/23 22:30 71 17 181/88 95 10/28/23 21:30 71 13 183/65 97 10/28/23 20:32 98.0 F 66 16 189/89 96 10/28/23 19:21 70 16 192/94 96 10/28/23 18:53 98.4 F 73 18 207/80 97 Intake and Output 10/28/23 10/29/23 10/29/23 22:59 06:59 14:59 Intake Total 118 Balance 118 Intake: Oral 118 Other: Weight 60.328 kg GENERAL: The patient is lying in bed and is not in acute distress. NEUROLOGICAL: Higher mental function: The patient is awake, alert, oriented to self, place and time. Patient is following commands. No aphasia and no neglect. Cranial nerves: The pupils are round, equal and reactive to light and accommodation. Visual carlos are full to confrontation throughout. Extraocular movement is intact no nystagmus is noted. Facial sensation is normal to touch throughout. The facial strength is has defect on left side of angle of upper mouth (old from old injury). Otherwise normal. Hearing is mildly decreased bilaterally to hand rub. Tongue is midline and moved [id number] without any difficulty. No dysarthria is noted. Shoulder shrug is normal bilaterally. Motor: The strength is 5 over 5 throughout. Normal tone and bulk. Cerebellum: Normal finger to nose heel to chin bilaterally. Sensation: Sensation is normal to touch throughout. Reflexes (right/left): 2+ throughout. Plantars are downgoing bilaterally. Results - Laboratory Findings CBC and BMP: 10/28/23 20:07 10/28/23 20:07 Abnormal Lab Findings: Abnormal Labs 10/28/23 13:04 Triglycerides 190.00 H Assessment and Plan Assessment: This is an 83-year-old woman who presented emergency department because of right lower facial droop with the dysarthria and expressive aphasia that started around 6:15 PM and her presentation lasted for 20 minutes and her to resolve. 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 As a result will get a repeat CT of the head tomorrow if unable to obtain the MRI today or tomorrow to assess if there is any acute or subacute changes not seen on the initial CT. And if unable to obtain the MRI then that can obtain as an outpatient Patient is resumed on her home dose of aspirin 81 mg in addition she started on Plavix 75 mg daily. I started the patient on Lipitor 40 mg daily at bedtime for secondary stroke prophylaxis. Patient was given 80 mg of aspirin once by the primary team. 2-D echo was ordered and is pending I ordered TSH, hemoglobin A1c PT OT and AVIONICS SUPERVISOR are consulted Continue neuro checks Cardiac monitoring We'll defer the rest of the medical management to primary team For DVT prophylaxis the patient is on Lovenox Upon discharge recommend the patient to follow-up with a neurologist as an outpatient within 1-2 weeks. The plan discussed with the patient, her son was at bedside and the primary team Thank you for the consultation Time with Patient: Greater than 30
[2023-10-29] MEDS: CLOPIDOGREL 75 MG TAB PO SCH (10:31)
--- NOTE | 2023-10-29 10:37 | P.PN ---
Subjective Progress Note Date: 10/29/23 Patient is a 83-year-old female with a PMH of hypertension, hyperlipidemia, and type II DM who presents to the emergency room with complaints of right facial droop and right arm weakness. Patient notes that she was at home this evening sitting with her family playing cards when she suddenly developed a right facial droop with slurred speech and right hand weakness. The symptoms lasted for around 15 minutes and then resolved completely. CT angiogram head neck and and CT brain were unremarkable with no acute abnormalities with EKG showing sinus rhythm at 71 bpm with T wave flattening in leads V2 to V4. Chest x-ray was unremarkable. Laboratory evaluation was remarkable for troponin less than 0.012, WBC count 5.6, hemoglobin 12.2, sodium 139, potassium 4.3, creatinine 0.69. Patient was admitted for workup of TIA. 10/28 Patient was seen and examined. Discused with Dr. Kaur and RN at bedside. Her symptoms have resolved and she would like to go home. MRI brain is not available until Wednesday or Wednesday at the earliest. Plans to obtain Echo and MRI brain (if we can). If not, we may consider repeat CT head tomorrow. Troponin 0.019 x 2. Lipid panel TG 190, LDL 51.3, T. Chol 134. General: non toxic, no distress, appears at stated age Derm: warm, dry Head: atraumatic, normocephalic, symmetric Eyes: EOMI, no lid lag, anicteric sclera Mouth: no lip lesion, mucus membranes moist Cardiovascular: S1S2 reg, no murmur Lungs: CTA bilateral, no rhonchi, no rales , no accessory muscle use Ext: no gross muscle atrophy, no edema, no contractures Neuro: CN II-XI grossly intact, no focal neuro deficits Psych: Alert, oriented, appropriate affect Based on my assessment of this patient, this patient meets a high complexity level of care. Patient has an acute diagnosis of TIA that poses a threat to life or bodily function. Transient ischemic attack: ASA 81 mg PO QD. Plavix 75 mg PO QD. Lipitor 40 mg PO QHS. Telemetry monitoring. Neurochecks. A1c and Lipid panel ordered. Echocardiogram. Possible CT brain tomorrow if we are not back to get MRI brain. Neurology on board. PT/OT/ST consult. Hypertensive urgency: Lisinopril 40 mg PO QD. Add Amlodipine 10 mg PO QD and HCTZ 12.5 mg PO QD. Chronic conditions: Type II DM, hyperlipidemia CODE STATUS: FULL CODE DVT Prophylaxis: Lovenox GI Prophylaxis: Protonix Designated medical POA if patient is not able to make medical decisions for them selves: I have reviewed the following industrial rehabilitation consultant notes: Neurology. I have reviewed the results of the following tests: Troponin. Lipid panel. I have ordered the following tests: Echo. MRI brain. I have discussed the care of this patient with the following independent historian: RN and Son regarding plan of care. I have independently interpreted the following test below: I have discussed the management of this patient with the following physician: Dr. Kaur. Objective - Vital Signs Vital signs: Vital Signs Temp 97.8 F 10/29/23 07:56 Pulse 68 10/29/23 07:56 Resp 17 10/29/23 07:56 BP 181/79 10/29/23 07:56 Pulse Ox 96 10/29/23 07:56 FiO2 Intake & Output 10/28/23 10/29/23 10/29/23 18:59 06:59 18:59 Intake Total 118 Balance 118 Weight 60.328 kg Intake: Oral 118 - Labs CBC & Chem 7: 10/28/23 20:07 10/28/23 20:07 Labs: Abnormal Lab Results - Last 24 Hours (Table) 10/28/23 Range/Units 13:04 Triglycerides 190.00 H (0.00-149.00) mg/dL
[2023-10-29] MEDS: hydroCHLOROthiazide 12.5 MG CAP PO SCH (12:37)
[2023-10-29] MEDS: amLODIPine 10 MG TAB PO SCH (12:37)
--- NOTE | 2023-10-29 18:08 | CA ---
Transthoracic Echo Report Name: Yeni Cotto Age: 83 Gender: F : 1940 Exam Date: 10/29/2023 12:45 Exam Location: [facility] Ht (in): 63 Wt (lb): 133 Ordering Physician: Rafita Escalante MD Attending/Referring Phys: Highway Safety Engineer Alexandria Melo RCS Procedure CPT: Indications: Thrombus Cardiac Hx: Technical Quality: Good Contrast 1: Total Dose (mL): Contrast 2: Total Dose (mL): MEASUREMENTS (Male / Female) Normal Values 2D ECHO LV Diastolic Diameter PLAX 5.1 cm 4.2 - 5.9 / 3.9 - 5.3 cm LV Systolic Diameter PLAX 3.6 cm IVS Diastolic Thickness 0.8 cm 0.6 - 1.0 / 0.6 - 0.9 cm LVPW Diastolic Thickness 0.9 cm 0.6 - 1.0 / 0.6 - 0.9 cm LV Relative Wall Thickness 0.3 RV Internal Dim ED PLAX 2.7 cm LVOT Diameter 2.0 cm LV Diastolic Volume MOD BP 94.1 cm??? 67 - 155 / 56 - 104 cm??? LV Systolic Volume MOD BP 40.5 cm??? 22 - 58 / 19 - 49 cm??? LV Ejection Fraction MOD BP 57.0 % >= 55 % LV Cardiac Index MOD BP 2248.7 cm???/min???m??? LV Diastolic Volume MOD 4C 87.0 cm??? LV Systolic Volume MOD 4C 39.9 cm??? LV Ejection Fraction MOD 4C 54.2 % LV Cardiac Index MOD 4C 1977.5 cm???/min???m??? LV Diastolic Length 4C 8.2 cm LV Systolic Length 4C 7.0 cm LV Diastolic Volume MOD 2C 99.6 cm??? LV Systolic Volume MOD 2C 41.1 cm??? LV Ejection Fraction MOD 2C 58.7 % LV Cardiac Index MOD 2C 2452.6 cm???/min???m??? LV Diastolic Length 2C 8.0 cm LV Systolic Length 2C 7.0 cm LA Volume 35.7 cm??? 18 - 58 / 22 - 52 cm??? LA Volume Index 21.7 cm???/m??? 16 - 28 cm???/m??? DOPPLER AV Peak Velocity 163.6 cm/s AV Peak Gradient 10.7 mmHg AV Mean Velocity 102.5 cm/s AV Mean Gradient 5.0 mmHg AV Velocity Time Integral 33.0 cm LVOT Peak Velocity 105.4 cm/s LVOT Peak Gradient 4.4 mmHg LVOT Velocity Time Integral 21.9 cm LVOT Stroke Volume 66.7 cm??? LVOT Stroke Volume Index 41.0 ml/m??? LVOT Cardiac Index 2796.6 cm???/min???m??? AV Area Cont Eq vti 2.0 cm??? AV Area Cont Eq pk 2.0 cm??? MV Area PHT 2.1 cm??? Mitral E Point Velocity 76.1 cm/s Mitral A Point Velocity 119.1 cm/s Mitral E to A Ratio 0.6 MV Deceleration Time 353.8 ms PV Peak Velocity 99.3 cm/s PV Peak Gradient 3.9 mmHg FINDINGS Left Ventricle Left ventricular ejection fraction is estimated at 55-60 %. Left ventricular cavity size normal. Left ventricular wall thickness normal. No obvious regional wall motion abnormalities. Right Ventricle Normal right ventricular size and function. Unable to estimate right ventricular systolic pressure. Right Atrium Normal right atrial size. Left Atrium Normal left atrial size. Mitral Valve Structurally normal mitral valve. No evidence for mitral valve prolapse. No mitral stenosis. Mild to moderate mitral regurgitation. Aortic Valve Trileaflet aortic valve. No aortic stenosis. Moderate aortic regurgitation. Tricuspid Valve Structurally normal tricuspid valve. No tricuspid stenosis. Trace tricuspid regurgitation. Pulmonic Valve Structurally normal pulmonic valve. No pulmonic stenosis. Trace pulmonic regurgitation. Pericardium No pericardial effusion. Aorta Normal size aortic root and proximal ascending aorta. CONCLUSIONS Technically difficult study Normal LV systolic function [id number] mitral regurgitation Moderate aortic regurgitation Previewed by: Dr. James Ham MD (Electronically Signed) Final Date: 29 October 2023 18:07
[2023-10-29] MEDS: ATORVASTATIN 40 MG TAB PO SCH (20:19)
[2023-10-29] MEDS ORDERED: ATORVASTATIN 10 MG TAB PO SCH (21:00)
[2023-10-30] MEDS ORDERED: LORazepam 2 MG/ML INJ IV PRN (08:58)
--- NOTE | 2023-10-30 10:39 | P.DS ---
Providers Date of admission: 10/28/23 23:29 Expected date of discharge: 10/30/23 Attending physician: Mikki Bedolla MD Consults: 10/28/23 23:29 Consult Physician Routine Consulting Provider: Rick Kaur Consult Reason/Comments: TIA Do you want consulting provider notified?: Yes, Notify in am Primary care physician: lAvaro [facility] Course: Patient is a 83-year-old female with a PMH of hypertension, hyperlipidemia, and type II DM who presents to the emergency room with complaints of right facial droop and right arm weakness. Patient notes that she was at home this evening sitting with her family playing cards when she suddenly developed a right facial droop with slurred speech and right hand weakness. The symptoms lasted for around 15 minutes and then resolved completely. CT angiogram head neck and and CT brain were unremarkable with no acute abnormalities with EKG showing sinus rhythm at 71 bpm with T wave flattening in leads V2 to V4. Chest x-ray was unremarkable. Laboratory evaluation was remarkable for troponin less than 0.012, WBC count 5.6, hemoglobin 12.2, sodium 139, potassium 4.3, creatinine 0.69. Patient was admitted for workup of TIA. 10/28 Patient was seen and examined. Discused with Dr. Kaur and RN at bedside. Her symptoms have resolved and she would like to go home. MRI brain is not available until Wednesday or Wednesday at the earliest. Plans to obtain Echo and MRI brain (if we can). If not, we may consider repeat CT head tomorrow. Troponin 0.019 x 2. Lipid panel TG 190, LDL 51.3, T. Chol 134. 10/29 Patient was seen and examined. No acute events overnight. Facial droop and R hand weakness resolved. No slurred speech or confusion. Plans for MRI brain at 1PM. She will receive Ativan prior to her MRI. She does report her BP is usually controlled when at home SBP between 120 and 130. She reports while coat hypertension. BP is 125/61 today. We will not prescribe Amlodipine or HCTZ on discharge. Advised to continue home antihypertensive medication and monitor BP multiple times a day to follow up with PCP. Plans for discharge home if MRI is negative and Neurology cleared. A1c is 5.7. TSH is 1.86. Echo shows normal LV systolic function, mild-mod MR, mod AR. General: non toxic, no distress, appears at stated age Derm: warm, dry Head: atraumatic, normocephalic, symmetric Eyes: EOMI, no lid lag, anicteric sclera Mouth: no lip lesion, mucus membranes moist Cardiovascular: S1S2 reg, no murmur Lungs: CTA bilateral, no rhonchi, no rales , no accessory muscle use Ext: no gross muscle atrophy, no edema, no contractures Neuro: CN II-XI grossly intact, no focal neuro deficits Psych: Alert, oriented, appropriate affect Discharge Diagnosis: Transient ischemic attack Hypertensive urgency Chronic conditions: Type II DM, hyperlipidemia This complex discharge took 35 minutes to complete. Patient Condition at Discharge: Stable Plan - Discharge Summary Discharge Rx Participant: Yes New Discharge Prescriptions: No Action Simvastatin [Zocor] 20 mg PO HS Aspirin [Adult Low Dose Aspirin EC] 81 mg PO DAILY Glimepiride [Amaryl] 1 mg PO DAILY Cholecalciferol (Vitamin D3) [Vitamin D3] 50 mcg PO DAILY lisinopriL 40 mg PO DAILY Omeprazole [PriLOSEC] 20 mg PO DAILY Discharge Medication List Aspirin [Adult Low Dose Aspirin EC] 81 mg PO DAILY 03/05/18 [History] Simvastatin [Zocor] 20 mg PO HS 03/05/18 [History] Cholecalciferol (Vitamin D3) [Vitamin D3] 50 mcg PO DAILY 10/08/19 [History] Glimepiride [Amaryl] 1 mg PO DAILY 10/08/19 [History] Omeprazole [PriLOSEC] 20 mg PO DAILY 10/28/23 [History] lisinopriL 40 mg PO DAILY 10/28/23 [History] Follow up Appointment(s)/Referral(s): Alvaro Najera MD [Primary Care Provider] - 1-2 days
--- NOTE | 2023-10-30 13:55 | CT ---
EXAMINATION TYPE: CT brain wo con CT DLP: 978.2 mGycm, Automated exposure control for dose reduction was used. DATE OF EXAM: 10/30/2023 1:37 PM COMPARISON: 10/28/2023. CLINICAL INDICATION:Female, 83 years old with history of dysarthria, right facial droop. cva, [place] hria, right facial droop. CVa TECHNIQUE: Brain: Axial CT images of the brain were obtained with coronal and sagittal reformats created and rev iewed. Contrast used: None. Oral contrast used: None. FINDINGS: Brain: Extra-axial spaces: No abnormal extra-axial fluid collections. Ventricular system: Dilatation in proportion to cerebral atrophy. Cerebral parenchyma: Cerebral atrophy. No acute intraparenchymal hemorrhage or mass effect. The menezes -white junction is well differentiated. Scattered hypoattenuating areas are seen within the white mat ter. Cerebellum: Unremarkable. Mass effect: No evidence of midline shift. Intracranial vasculature: unremarkable Soft tissues: Normal. Calvarium/osseous structures: No depressed skull fracture. Paranasal sinuses and mastoid air cells: Mild scattered paranasal sinus disease. Visualized orbits: Orbital contents are intact. IMPRESSION: 1. No acute intracranial process. 2. Nonspecific white matter changes, likely secondary to chronic small vessel ischemic disease.
--- NOTE | 2023-10-30 14:09 | P.PN ---
Subjective Progress Note Date: 10/30/23 I am following-up with patient and she continues to be at baseline. Denies of any new neurological issues. Objective - Vital Signs Vital signs: Vital Signs Temp 98.3 F 10/30/23 07:00 Pulse 72 10/30/23 07:00 Resp 18 10/30/23 08:57 BP 125/61 10/30/23 07:00 Pulse Ox 94 L 10/30/23 07:47 FiO2 Intake & Output 10/29/23 10/30/23 10/30/23 18:59 06:59 18:59 Intake Total 236 Balance 236 Weight 60.328 kg Intake: Oral 236 Other: Voiding Method Toilet # Voids 3 1 # Bowel Movements 1 - Exam GENERAL: The patient is lying in bed and is not in acute distress. NEUROLOGICAL: Higher mental function: The patient is awake, alert, oriented to self, place and time. Patient is following commands. No aphasia and no neglect. Cranial nerves: The pupils are round, equal and reactive to light and accommodation. Visual carlos are full to confrontation throughout. Extraocular movement is intact no nystagmus is noted. Facial sensation is normal to touch throughout. The facial strength is has defect on left side of angle of upper mouth (old from old injury). Otherwise normal. Hearing is mildly decreased bilaterally to hand rub. Tongue is midline and moved [id number] without any difficulty. No dysarthria is noted. Shoulder shrug is normal bilaterally. Motor: The strength is 5 over 5 throughout. Normal tone and bulk. Cerebellum: Normal finger to nose heel to chin bilaterally. Sensation: Sensation is normal to touch throughout. Reflexes (right/left): 2+ throughout. Plantars are downgoing bilaterally. Some of the workup during this hospital visit consisted of: Initial blood pressure is 207/80 CBC with differential is unremarkable Chemistry panel is unremarkable TSH is 1.860 Hemoglobin A1c is 5.8. Lipid panel is triglycerides 190, cholesterol is 134, LDLs 51 and HDL is 44 CT of the head is reported as no acute intracranial hemorrhage, midline shift or mass effect. I personally reviewed this T the head and I feel the patient has lacunar stroke over the left basal ganglia that seems old. CT angiography of the head and neck was reported as no acute finding of arteries of the neck as well as no large vessel occlusion or aneurysm. 2-D echo was reported as technically difficult study. Normal left ventricular systolic function. Mild to moderate much or regurgitation. Moderate aortic r egurgitation. Repeat CT of the head that today is reported as no acute intracranial process. Nonspecific white matter changes, likely secondary due to chronic small vessel ischemic disease. - Labs CBC & Chem 7: 10/28/23 20:07 10/28/23 20:07 Assessment and Plan Assessment: This is an 83-year-old woman who presented emergency department because of right lower facial droop with the dysarthria and expressive aphasia that started around 6:15 PM and her presentation lasted for 20 minutes and her to resolve. 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 Patient had too CT of the head which were unremarkable for any acute or subacute process. Recommend MRI of the brain as an outpatient since patient symptoms resolved and the MRI as an inpatient we'll not change the management. We'll defer the MRI order to her primary neurologist as an outpatient. Patient is resumed on her home dose of aspirin 81 mg in addition she started on Plavix 75 mg daily. I started the patient on Lipitor 40 mg daily at bedtime for secondary stroke prophylaxis. PT OT and FAMILY PRESERVATION OFFICER are consulted Continue neuro checks Cardiac monitoring We'll defer the rest of the medical management to primary team For DVT prophylaxis the patient is on Lovenox Upon discharge recommend the patient to follow-up with a neurologist as an outpatient within 1-2 weeks. The plan discussed with the patient and the primary team. There is no further neurological workup. Time with Patient: Less than 30
[2023-10-30 14:44] VITALS: BP 126/65; PULSE 77; RESP 16; TEMP 97.7
== END 2023-10-30 16:10 | disposition home or self-care (01) ==
LOC: EC 18:50 → 6NMEDSUR 23:29
PROVIDERS: ADMIT Internal Medicine; ATTEND Internal Medicine
DX: R20.0 Anesthesia of skin (principal); R29.810 Facial weakness; R47.89 Other speech disturbances; R20.2 Paresthesia of skin; I16.0 Hypertensive urgency; I10 Essential (primary) hypertension; E86.0 Dehydration; J44.9 Chronic obstructive pulmonary disease, unspecified; E11.9 Type 2 diabetes mellitus without complications; K21.9 Gastro-esophageal reflux disease without esophagitis; E78.5 Hyperlipidemia, unspecified; Z86.73 Personal history of transient ischemic attack (TIA), and cerebral infarction without residual deficits; Z79.82 Long term (current) use of aspirin; Z79.899 Other long term (current) drug therapy; Z79.84 Long term (current) use of oral hypoglycemic drugs; Z82.3 Family history of stroke
CPT/HCPCS: 96361 ×3; 96372 ×2; 96360; 99291; 36415; 94760; 93005; 93306; 97161; 97165; 80061; 80053; 84443; 82550; 84484 ×2; 85025; 85610; 85730; 83036; 71046; 70496; 70450 ×2; 70498; G0378 ×3; J1650 ×2; Q9967